=== PATIENT | male | born 1985 | race Caucasian/White ===

== ENCOUNTER 2017-02-24 22:28 | Emergency (ER) | payer MEDICARE, MEDICAID ==
[~2017-02-24] VITALS: Ht 177.8 cm; Wt 95.3 kg
[~2017-02-24 22:28] MED LIST: AMOXICILLIN 50500 MG PO; ANTIVERT12.5 MG PO; AUGMENTIN 875-1 EACH PO; AUGMENTIN1 TA2 PO; AURALGAN O10 ML/BOTT OT; BUSPAR 5MG TAB5 MG PO; CEPHALEXIN500 MG PO; CIPRO 500MG TA500 MG PO; CLARITIN 24HR10 MG PO; CLINDAMYCIN HC300 MG PO; DOXEPIN HCL100 MG PO; FLUVOXAMINE MA100 MG PO; HYDROCODONE1 TABLET PO; KLONOPIN 0.5MG0.5 MG PO; LEVOTHYROXINE0.05 MG NG; LIPITOR10 MG PO; LORTAB 5/500 501 TAB PO; LYRICA 100 MG100 MG; NAPROSYN500 M1 PO; Oxycodone5 MG NG; PREDNISONE 20MG20 MG PO; REQUIP0.25 MG PO; REQUIP1 MG PO; SEROQUEL XR400 MG PO; SEROQUEL50 MG PO; SULFAMETHOXAZOL1 TA6 PO; SYNTHROID 0.00.05 MG PO; TESSALON PERLE100 MG PO
--- OUTSIDE RECORDS SUMMARY | 2017-02-24 22:39 | External Medical Summary Rpt ---
Author Author , Organization [employer] Address Unknown Phone Unavailable Care Team Providers Care Document Restorer Name Role Phone MILLY SRINIVASAN Unavailable Unavailable KRISTY MILLY WAGNER, MILLY Unavailable Unavailable KRISTY [employer] [facility] Unavailable Unavailable ACTION, [facility] SVETLANA, MACEY H, Unavailable Unavailable SVETLANA, MACEY H [facility] [place] Un[facility], Unavailable Unavailable [facility] MARYAN GERHARD, Unavailable Unavailable MARYAN GERHARD [facility], Unavailable Unavailable [facility], [facility] Unavailable Unavailable [facility], [facility] Unavailable Unavailable [facility] Unavailable Unavailable [facility], [facility] Unavailable Unavailable TRANSPORTATION SER, [facility] NILA JANNIE, NILA Unavailable Unavailable JANNIE NILA JANNIE, NILA Unavailable Unavailable JANNIE [facility] Unavailable Unavailable HOSPITA, [facility] Unavailable [facility]available [facility], [facility] HABASH, KEFAH, Unavailable Unavailable [facility]ABASH, KEFAH [facility] Unavailable Unavailable INC, [facility] HUHN, KENDY, HUHN, Unavailable Unavailable KENDY SCOTT TRA, SCOTT TRA Unavailable Unavailable LLAMAS-VINCE OMERO, Unavailable Unavailable [facility]AM[facility]VINCE OMERO RICHARD III ZBIGNIEW, Unavailable Unavailable RICHARD III ZBIGNIEW [facility] Un[facility] Unavailable [facility], [facility], Unavailable Unavailable [facility], Unavailable Unavailable [facility], [facility]available Unavailable [facility] Unavailable Unavailable ACTION, [facility] Unavailable Unavailable SERVICES, [facility] Unavailable Unavailable SERVICES, [facility] ALEX PERALES, Unavailable Unavailable ALEX PERALES HENRY, Unavailable Unavailable JAYDAROMELIA VAZQUEZ [facility], [facility]YN[facility] PAD Unavailable Unavailable [facility], [facility] Unavailable Unavailable ERASMO ALONSO, ERASMO ALONSO Unavailable Unavailable ERASMO ALONSO, ERASMO ALONSO Unavailable Unavailable [id number], Unavailable Unavailable [id number] SOKAN BAB, SOKAN BAB Unavailable Unavailable [facility] Unavailable Unavailable [facility], [facility] Unavailable Unavailable [facility], [facility] ARTI III CASSY, Unavailable Unavailable ARTI III CASSY NEELY, Unavailable Unavailable AMANUEL Neely Unavailable Unavailable III Amanuel BROTHERS III MD TANIA BRYANT, TANIA Unavailable Unavailable MANNY BETHANY MAT, BETHANY MAT Unavailable Unavailable Purpose Continuity of Care Document - 10-24-2007 through 2016 Problems Code Diagnosis DOS Provider Status M542 CERVICALGIA 05-30-2016 [facility] M545 LOW BACK 05-30-2016 [facility] M546 PAIN IN 05-30-2016 [facility]AC[facility] SPINE INC I10 ESSENTIAL 03-31-2016 [facility] HYPERTENSIO INC N K219 GASTRO-ESOP 03-31-2016 [facility] REFLUX [facility] DISEASE INC WITHOUT ESOPHAGITIS K5900 CONSTIPATIO 03-31-2016 [place] N [facility] UNSPECIFIED IMAGING ASS K6289 OTHER 03-31-2016 [facility] SPECIFIED [facility] DISEASES OF INC ANUS AND RECTUM N508 OTHER 03-31-2016 [place] SPECIFIED MEDICAL DISORDERS IMAGING ASS OF MALE GENITAL ORGANS R109 UNSPECIFIED 03-31-2016 [place] ABDOMINAL MEDICAL PAIN IMAGING ASS G74726 CELLULITIS 12-04-2015 [facility] RIGHT [facility] FINGER INC T148 OTHER 12-04-2015 [facility] INJURY OF [facility] UNSPECIFIED INC BODY REGION Z23 ENCOUNTER 12-04-2015 [facility] FOR [facility] IMMUNIZATIO INC N J209 ACUTE 08-09-2015 [facility]ONCH[facility]IS [facility] UNSPECIFIED INC R918 OTHER 08-09-2015 [place] NONSPECIFIC MEDICAL ABNORMAL IMAGING ASS FINDING OF LUNG FIELD 13783 01-06-2015 [facility] ION SER 7862 COUGH 08-19-2014 [facility] 7295 PAIN IN 06-07-2014 [place] SOFT MEDICAL TISSUES OF IMAGING ASS LIMB 50611 SPRAIN AND 06-07-2014 NILA JANNIE STRAIN OF UNSPECIFIED SITE OF FOOT 5537 INJURY 06-07-2014 [place] OTHER&UNSPE MEDICAL CIFIED KNEE IMAGING ASS LEG ANKLE&FOOT E8849 OTHER 06-07-2014 NILA JANNIE ACCIDENTAL FALL FROM ONE LEVEL TO ANOTHER 75102 SCOLIOSIS , 03-09-2014 [facility] [place] [facility] 7245 UNSPECIFIED 02-07-2014 ER[facility] ALONSO BACKACHE 08382 CHEST PAIN 02-07-2014 [place] UNSPECIFIED MEDICAL IMAGING ASS 382.9 382.9 2013 [place] [facility]ITIS [facility] MEDIA NOS Hospital 3829 UNSPECIFIED 2013 [facility] 401.9 401.9 2013 [place] HYPERTENSIO [facility] N NOS Hospital 4019 UNSPECIFIED 2013 [place] ESSENTIAL [facility] HYPERTENSIO INC N 48118 PAIN IN 04-18-2013 [facility] [place] [facility], RADIOLOGY FOREARM 354.0 354.0 10-27-2012 [facility] SYNDROME 719.43 719.43 10-27-2012 [facility] M 77964 SPRAIN AND 10-27-2012 [facility] STRAIN OF UNSPECIFIED SITE OF WRIST 7242 LUMBAGO 05-22-2012 [facility] [place] [facility] 3534 LUMBOSACRAL 05-02-2012 [facility] [place] ROOT [facility]THOP[facility]EDIC LESIONS NEC S PLC 7820 DISTURBANCE 05-02-2012 [facility] [place] OF SKIN ORTHOPAEDIC SENSATION S PLC 3540 CARPAL 02-15-2012 [facility] SYNDROME MEDICAL EQUIPME 3688 OTHER 08-29-2011 [place] SPECIFIED MEDICAL VISUAL IMAGING ASS DISTURBANCE S 00404 ONYCHIA AND 08-29-2011 [facility] EMERGENCY OF FINGER SERVICES 7231 CERVICALGIA 08-29-2011 [facility] 7840 HEADACHE 08-29-2011 [facility] 55217 HEAD 08-29-2011 [facility] INJURY, EMERGENCY UNSPECIFIED SERVICES 2449 UNSPECIFIED 08-15-2011 MARCOSLINDA KRISTY HYPOTHYROID ISM 22316 OTH 08-15-2011 MARCOSLINDA KRISTY EXTRAPYRAMI YNES DZ&ABNORM MOVMNT DISORDER 36789 VARIANTS 08-15-2011 MARCOSLINDA KRISTY MIGRAINE NEC INTRACT MIGRAINE W/[place] [address] ESOPHAGEAL 08-15-2011 MARCOSLINDA KRISTY REFLUX 2724 OTHER AND 05-08-2011 [place] UNSPECIFIED [facility] INC HYPERLIPIDE DEVAN 5718 OTHER 03-19-2011 [facility] CHRONIC NONALCOHOLI C LIVER DISEASE 7948 NONSPECIFIC 03-19-2011 [facility] ABNORMAL RESULTS LIVR FUNCTION STUDY 7030 INGROWING 12-11-2010 [facility] 7905 OTHER 11-28-2010 [place] NONSPECIFIC COMMUNITY ABNORMAL HOSPITA SERUM ENZYME LEVELS 39730 PAIN IN 08-10-2010 [place] [facility], MEDICAL LOWER LEG IMAGING ASS 8449 SPRAIN&STRA 08-10-2010 [facility] IN OF EMERGENCY UNSPECIFIED SERVICES SITE OF KNEE&LEG 64490 OTHER 06-06-2010 [facility] ABNORMAL GLUCOSE 7906 OTHER 06-06-2010 [place] ABNORMAL COMMUNITY BLOOD HOSPITA CHEMISTRY V180 FAMILY 06-02-2010 [facility] HISTORY OF DIABETES MELLITUS V700 ROUTINE 06-02-2010 [facility] MEDICAL EXAM@HEALTH CARE FACL 38172 ONYCHIA AND 10-27-2009 [facility]GENCY OF TOE SERVICES ASSOCIATES 0340 STREPTOCOCC 08-24-2009 [facility] SORE [facility] THROAT SERVICES ASSOCIATES 3670 HYPERMETROP 07-22-2009 [facility] 77619 REGULAR 07-22-2009 [facility] 8483 SPRAIN AND 02-22-2009 [place] STRAIN OF [facility] 8488 OTHER 02-22-2009 [facility] SPECIFIED EMERGENCY SITES OF SERVICES SPRAINS AND ASSOCIATES STRAINS E9278 OTH 02-22-2009 [facility] OVEREXERT&S EMERGENCY TRENUOUS&RE SERVICES PETITIVE ASSOCIATES MVMNTS/LOAD S 24744 OTHER 09-14-2008 [facility] CAVITY AND SINUSES V5869 LONG-TERM 07-01-2008 [place] (CURRENT) [facility] USE OF HOSPITAL OTHER MEDICATIONS 4660 ACUTE 10-24-2007 [facility] 5110 PLEURISY 10-24-2007 [facility] WITHOUT [facility] MENTION INC EFFUS/CURRE NT TB Allergies, Adverse Reactions, Alerts Type Drug Allergy Adverse Reaction to Substance Substance Reaction Severity Codeine Unknown Unknown Acetaminophen Unknown Unknown Medications Na ND Rx Da Fi Fi Am Da Di Ph RX Ph St me C No te ll ll ou ys ag ar # ys at rm s nt no ma ic us Or Da si cy ia de te s n re d QU 49 02 03 60 30 00 RI Ac ET 88 -1 -1 .0 00 TE ti IA 40 6- 7- 00 01 ve PI 80 20 20 17 AI NE 80 17 17 23 D 2 05 PH ER AR MA 30 CY 0 MG #3 93 TA 8 BL ET 50 12 01 00 24 12 CV 19 PO Ac 38 -2 -[address] ti 30 3- 1- 00 PH 21 ON ve 87 20 20 0 AR 21 08 09 MA HE 6 CY NR Y 23 32 CL 00 03 06 01 60 30 RI 73 No Ac ON 09 -3 -1 .0 TE 03 t ti AZ 30 1- 2- 00 37 Av ve EP 83 20 20 AI ai AM 20 08 08 D la 1 PH bl 0. AR e 5 M MG #3 93 TA 8 BL ET CL 00 03 05 00 60 30 RI 73 No Ac ON -3 -0 .0 TE 03 t ti AZ 30 1- 8- 00 37 Av ve EP 83 20 20 AI ai AM 20 08 08 D la 1 PH bl 0. AR e 5 M MG #3 93 TA 8 BL ET CL 00 01 04 01 60 30 RI 71 No Ac ON -2 -1 .0 TE 64 t ti AZ 30 2- 7- 00 63 Av ve EP 83 20 20 AI ai AM 20 08 08 D la 1 PH bl 0. AR e 5 M MG #3 93 TA 8 BL ET CL 00 01 03 00 60 30 RI 71 No Ac ON 2 -2 .0 TE 64 t ti AZ 30 2- 6- 00 63 Av ve EP 83 20 20 AI ai AM 20 08 08 D la 1 PH bl 0. AR e 5 M MG #3 93 TA 8 BL ET CL 00 11 03 02 60 30 RI 70 No Ac ON -0 -2 .0 TE 46 t ti AZ 30 5- 4- 00 86 Av ve EP 83 20 20 AI ai AM 20 07 08 D la 1 PH bl 0. AR e 5 M MG #3 93 TA 8 BL ET Vital Signs 2013 16:09 Name Value Interpretat Reference Comment ion Range Body 98.3 [degF] Temperature BP 78 mm[Hg] Diastolic BP Systolic 120 mm[Hg] Heart 93 /min Rate/Pulse O2% 98 % Respiratory 18 /min Rate 2013 16:08 Name Value Interpretat Reference Comment ion Range Body 98.3 [degF] Temperature BP 78 mm[Hg] Diastolic BP Systolic 120 mm[Hg] Heart 93 /min Rate/Pulse O2% 98 % Respiratory 18 /min Rate 10-27-2012 17:42 Name Value Interpretat Reference Comment ion Range Body 98.1 [degF] Temperature BP 77 mm[Hg] Diastolic BP Systolic 119 mm[Hg] Heart 101 /min Rate/Pulse O2% 96 % Respiratory 17 /min Rate Procedures Procedure DOS Code Location Performer Comment RADEX 43532 [facility] SPINE 6 [facility] CERVICAL INC INC [address] [place] [address] [facility] ABDOMEN & 6 [facility] PELVIS INC INC W/CONTRAS T MATERIAL RADEX 06779 [facility] ABDOMEN 6 MEDICAL GERHARD COMPL IMAGING W/DCBTS&/ ASS ERC VIEWS IM ADM 33539 [facility] PRQ ID 6 [facility] SUBQ/IM INC INC NJXS 1 VACCINE RADIOLOGI 20240 [facility] C EXAM 5 [facility]OSP CHEST 2 INC INC VIEWS FRONTAL&L ATERAL NONEMERG A0120 [facility] FEDERATED TRNSPRT: 5 [facility] TRANSPORT [facility] AREA/OTH SYS NONEMERG A0120 FEDERATED FEDERATED TRNSPRT: 4 TRANS [facility] TRANSPORT [facility] SER KIET AREA/OTH SYS RADIOLOGI 52798 [place] MARYAN C EXAM 4 MEDICAL GERHARD CHEST 2 IMAGING VIEWS ASS FRONTAL&L ATERAL NONEMERG A0120 FEDERATED FEDERATED TRNSPRT: 4 TRANS [facility] TRANSPORT [facility] SER KIET AREA/OTH SYS NONEMERG A0120 FEDERATED FEDERATED TRNSPRT: 4 TRANS [facility] TRANSPORT [facility]G [facility] SER KIET AREA/OTH SYS NONEMERG A0120 FEDERATED FEDERATED TRNSPRT: 4 TRANS [facility] TRANSPORT [facility] SER KIET AREA/OTH SYS NONEMERG A0120 FEDERATED FEDERATED TRNSPRT: 4 TRANS [facility] TRANSPORT SERVBLUEG [facility] SER KIET AREA/OTH SYS RADEX 51641 ALBERTO MARYAN FOOT 4 MEDICAL GERHARD COMPLETE IMAGING MINIMUM 3 ASS VIEWS RADEX 35365 [facility] [place] BETHANY MAT SPINE 4 RADIOLOGY THORACOLM BR STANDING SCOLIOSIS RADIOLOGI 85616 [place] MARYAN C EXAM 4 MEDICAL GERHARD CHEST 2 IMAGING VIEWS ASS FRONTAL&L ATERAL NONEMERG A0120 BLUE BLUE TRNSPRT: 3 [facility] IMNEXTBUS [facility] MTN ACTION ACTION AREA/OTH SYS NONEMERG A0120 BLUE BLUE TRNSPRT: 3 [facility] ACTION ACTION AREA/OTH SYS NONEMERG A0120 BLUE BLUE TRNSPRT: 3 [facility] MTN ACTION ACTION AREA/OTH SYS RADEX 86653 [facility] [place] RICHARD WRIST 3 RADIOLOGY III ZBIGNIEW COMPLETE MINIMUM 3 VIEWS NONEMERG A0120 BLUE BLUE TRNSPRT: [address] [facility] IMNEXTRAREFORM [facility] MTN ACTION ACTION AREA/OTH SYS NONEMERG A0120 LKLP LKLP TRNSPRT: 3 [facility] MINI-BUS ACTION ACTION MTN AREA/OTH SYS WRIST L3908 [facility] HAND 3 ORTHOSIS EXT CONTROL COCK-UP PREFAB NONEMERG A0120 LKLP LKLP TRNSPRT: 3 [facility] MINI-BUS ACTION ACTION MTN AREA/OTH SYS NONEMERG A0120 LKLP LKLP TRNSPRT: 3 [facility] MIN[facility]-BUS ACTION ACTION MTN AREA/OTH SYS NONEMERG A0120 LKLP LKLP TRNSPRT: 2 [facility] MINI-BUS ACTION ACTION MTN AREA/OTH SYS NONEMERG A0120 LKLP LKLP TRNSPRT: 2 [facility]-BUS ACTION ACTION MTN AREA/OTH SYS NONEMERG A0120 LKLP LKLP TRNSPRT: 2 [facility] MINI-BUS ACTION ACTION MTN AREA/OTH SYS NONEMERG A0120 LKLP LKLP TRNSPRT: 2 [facility] ACTION ACTION MTN AREA/OTH SYS NONEMERG A0120 LKLP LKLP TRNSPRT: 2 [facility] MINI-BUS ACTION ACTION MTN AREA/OTH SYS NONEMERG A0120 LK LK TRNSPRT: 2 [facility] COMM[facility] ACTION ACTION MTN AREA/OTH SYS NONEMERG A0120 LK LK TRNSPRT: 2 COMMUNITY COMMUNITY [facility] ACTION MTN AREA/OTH SYS NONEMERG A0120 LK LK TRNSPRT: 2 COMM[facility] COMMUNITY [facility] ACTION MTN AREA/OTH SYS NONEMERG A0120 LK LK TRNSPRT: 2 COMMUNITY COMMUNITY [facility] ACTION MTN AREA/OTH SYS NONEMERG A0120 LK LK TRNSPRT: 2 [facility] COMMUNITY [facility] ACTION ACTION MTN AREA/OTH SYS NONEMERG A0120 LK LK TRNSPRT: 2 [facility] COMMUNITY [facility] ACTION ACTION MTN AREA/OTH SYS NONEMERG A0120 LK LK TRNSPRT: 2 [facility] COMMUNITY [facility] ACTION ACTION MTN AREA/OTH SYS NONEMERG A0120 LK LK TRNSPRT: 2 [facility] COMMUNITY [facility] ACTION ACTION MTN AREA/OTH SYS NONEMERG A0120 LK LK TRNSPRT: 2 [facility] COMMUNITY [facility] ACTION ACTION MTN AREA/OTH SYS NONEMERG A0120 LK LK TRNSPRT: 2 [facility] COMMUNITY [facility] ACTION ACTION MTN AREA/OTH SYS NONEMERG A0120 LK LK TRNSPRT: 2 COMMUNITY COMMUNITY [facility] ACTION MTN AREA/OTH SYS NONEMERG A0120 LK LK TRNSPRT: 2 [facility]UN[facility] ACTION ACTION MTN AREA/OTH SYS NONEMERG A0120 LK LK TRNSPRT: 2 COMMUNITY COMMUNITY [facility] ACTION MTN AREA/OTH SYS NONEMERG A0120 LK LK TRNSPRT: 2 COMMUNITY COMMUNITY [facility] ACTION MTN AREA/OTH SYS MRI 41013 [facility] [place] SPINAL 2 [place] MANNY CANAL ORTHOPAED LUMBAR ICS PLC W/O CONTRAST MATERIAL NRV CNDJ 48863 [facility] AMPLT&LAT 2 [place] ENCY EA ORTHOPAED NRV MOTOR ICS PLC W/F-WAVE STD NRV CNDJ 77628 [facility] AMPLITUDE 2 [place] & ORTHOPAED LATENCY ICS PLC EACH NERVE SENSORY H-REFLEX 81632 [facility] AMPLT&LAT 2 [place] ENCY ORTHOPAED GASTRCN/S ICS PLC OLEUS MUSC NEEDLE 24320 [facility] EMG EA 2 [place] EXTREMTY ORTHOPAED W/PARASPI ICS PLC NL AREA COMPLETE RADEX 37785 [facility] [place] SPINE 2 [place] MANNY LUMBOSACR ORTHOPAED AL 2/3 ICS PLC VIEWS NONEMERG A0120 LK LK TRNSPRT: 2 [facility] MINI-BUS ACTION ACTION MTN AREA/OTH SYS NONEMERG A0120 [facility] TRNSPRT[facility] 2 [facility] ACTION ACTION MTN AREA/OTH SYS NONEMERG A0120 [facility] TRNSPRT: 2 [facility] ACTION ACTION MTN AREA/OTH SYS NONEMERG A0120 [facility] TRNSPRT: 2 [facility] ACTION ACTION MTN AREA/OTH SYS NONEMERG A0120 [facility] TRNSPRT[facility] 2 [facility] ACTION ACTION MTN AREA/OTH SYS NONEMERG A0120 [facility] TRNSPRT[facility] 2 [facility] ACTION ACTION MTN AREA/OTH SYS NONEMERG A0120 [facility] TRNSPRT[facility] 2 [facility] ACTION ACTION MTN AREA/OTH SYS NONEMERG A0120 [facility] TRNSPRT[facility] 2 [facility] ACTION ACTION MTN AREA/OTH SYS NONEMERG A0120 [facility] TRNSPRT: 2 [facility] ACTION ACTION MTN AREA/OTH SYS NONEMERG A0120 [facility] TRNSPRT: 2 [facility] ACTION ACTION MTN AREA/OTH SYS NONEMERG A0120 LK LK TRNSPRT: 2 [facility] ACTION ACTION MTN AREA/OTH SYS NONEMERG A0120 LK LK TRNSPRT: 2 [facility] ACTION ACTION MTN AREA/OTH SYS NONEMERG A0120 LK LK TRNSPRT: 2 [facility] ACTION ACTION MTN AREA/OTH SYS WRIST L3908 [facility] S[facility] HAND 2 HOME HOME ORTHOSIS MEDICAL MEDICAL EXT EQUIPME EQUIPME CONTROL COCK-UP PREFAB NONEMERG A0120 LK LK TRNSPRT: 2 [facility] ACTION ACTION MTN AREA/OTH SYS NONEMERG A0120 LK LK TRNSPRT: 1 [facility] ACTION N MTN AREA/OTH SYS RADEX 33660 [facility] SPINE 1 MEDICAL MEDICAL CERVICAL IMAGING IMAGING 4 OR [address] [place] [address] [facility] MAXILLOFA 1 MEDICAL MEDICAL CIAL W/[place] [address] [facility] HEAD/BRAI 1 MEDICAL MEDICAL N W/O IMAGING IMAGING CONTRAST ASS ASS MATERIAL NONEMERG A0120 LK LK TRNSPRT: 1 [facility]-BUS ACTION N MTN AREA/OTH SYS LIPID 98469 [facility] PANEL 1 [facility] INC INC COMPREHEN 28940 [facility] SIVE 1 [facility] METABOLIC INC INC PANEL COLLECTIO 04795 [facility] N VENOUS 1 [facility]OS[facility] [place] [address] [facility] THYROID 1 Research for Good [facility] STIMULATI NG HORMONE TSH COLLECTIO 30429 [facility] PAD N VENOUS 1 BLOOD VENIPUNCT URE LIPID 58317 [facility] PANEL 1 [facility] COMPREHEN 88888 [facility] SIVE 1 [facility] [place] [address] [facility] GAMMAGLOB 1 N N ULIN IGA COMMUNITY COMMUNITY IGD IGG HOSPITA HOSPITA IGM EACH COLLECTIO 15487 [facility] N VENOUS 1 N N BLOOD [facility] VENIPUNCT HOSPITA HOSPITA URE COMPREHEN 21282 [facility] SIVE 1 N N METABOLIC [facility] PANEL HOSPITA HOSPITA ACUTE 86097 [facility] HEPATITIS 1 N N PANEL [facility] [place] [address] [facility] ABDOMINAL 1 N N REAL COMMUNITY COMMUNITY TIME HOSPITA HOSPITA W/IMAGE LIMITED IMMUNOASS 89881 [facility] AY 1 N N ANALYTE COMMUNITY [facility] QUAL/SEMI HOSPITA HOSPITA QUAL MULTIPLE STEP HEPATITIS 90221 [facility] B CORE 1 N N ANTIBODY COMMUNITY [facility] HBCAB HOSPITA HOSPITA TOTAL HEPATITIS 76013 [facility] B SURF 1 N N ANTIBODY COMMUNITY COMMUNITY HBSAB HOSPITA HOSPITA HEPATITIS 55255 [facility] A 1 N N ANTIBODY COMMUNITY [facility] HAAB HOSPITA HOSPITA ANTINUCLE 33573 [facility] AR 1 N N ANTIBODIE COMMUNITY COMMUNITY S BAUTISTA HOSPITA HOSPITA FLUORESCE 21211 [facility] NT 1 N N NONNFCT COMMUNITY [facility] AGT ANTB HOSPITA [place] S[place] [address] [facility] THYROID 1 N N STIMULATI COMMUNITY [facility] NG HOSPITA HOSPITA HORMONE TSH COMPREHEN 96513 [facility] SIVE 1 N N METABOLIC [facility] PANEL HOSPITA HOSPITA COLLECTIO 66594 [facility] N VENOUS 1 N N BLOOD [facility] VENIPUNCT HOSPITA HOSPITA URE LIPID 01442 [facility] PANEL 1 N N COMMUNITY [facility] HOSPITA HOSPITA RADIOLOGI 82319 [facility] C 0 MEM HOS[facility] MEM HOSP EXAMINATI INC INC ON KNEE 3 VIEWS HEPATIC 44735 [facility] FUNCTION 0 N N PANEL [facility] [place] [address] [facility] INSULIN 0 N N TOTAL [facility] HOSPITA HOSPITA COLLECTIO 95902 [facility] N VENOUS 0 N N BLOOD [facility] VENIPUNCT HOSPITA HOSPITA URE COLLECTIO 22915 [facility] PAD LYNCH PAD N VENOUS 0 BLOOD VENIPUNCT URE COMPREHEN 41963 [facility] SIVE 0 [facility] METABOLIC PANEL LIPID 32480 [facility] PANEL 0 [facility] SUSCEPTIB 03815 [facility] LTY STDY 0 N N ANTIMICRB [facility] MICRO/AGA R DILUTJ CUL BACT 61801 [facility] XCPT 0 N N URINE [facility] OL AEROBIC ISOL CUL BACT 88100 [facility] AEROBIC 0 N N [facility] DEFINITIV E EA ISOL CUL BACT 53793 [facility] XCPT 9 N N URINE [facility] [place] [address] [facility] STREPTOCO 9 N N CCUS [facility] DETERMINA 69931 [facility], TION 9 EYE CARE [facility] REFRACTIV CENTER E STATE OPHTH 98221 [facility], MEDICAL 9 EYE CARE [facility] XM&EVAL CENTER COMPRE NEW PT 1/> VST RADEX 76043 [facility] SHOULDER 9 EMERGENCY KENDY 1 VIEW SERVICES ASSOCIATE S RADEX 86196 [facility] SHOULDER [address] HOSPITAL VIEWS BLOOD 69810 [facility] COUNT 9 N N [facility] AUTO&AUTO [facility] DIFRNTL WBC LIPID 90929 [facility] PANEL 9 N N [facility] HEPATIC 85218 [facility] FUNCTION 9 N [place] [facility] [place] [address] [facility] LACTATE 9 N N [facility] COLLECTIO 37910 [facility] N VENOUS 9 N N [facility] [place] [address] [facility] THYROID 9 N N STIMULATI [facility] TSH BASIC 83096 [facility] METABOLIC 9 N N PANEL [facility] TOTAL BASIC 01678 [facility] METABOLIC 8 N N PANEL [facility] [place] [address] [facility] THYROID 8 N N STIMULATI [facility] TSH COLLECTIO 06160 [facility] N VENOUS 8 N N [facility]LO[facility] HEPATIC 06484 [facility] FUNCTION 8 N N PANEL [facility] LIPID 31353 [facility] PANEL 8 N N [facility] BLOOD 72420 [facility] COUNT 8 N N [facility] AUTO&AUTO [facility] DIFRNTL WBC HEMOGLOBI 11161 [facility] N 8 N N [address] [place] [address] [facility] THER 8 [facility] PROPH/DX INC INC [place] THER 12614 [facility] PROPH/DX 8 [facility] NJX IV INC INC PUSH 1ST SBST/DRUG THER 77380 [facility] PROPH/DX 8 [facility] NJX EA INC INC SEQL IV PUSH SBST/DRUG IV NFS 23470 [facility] THER 8 [facility] PROPH/DX INC INC 1ST >1 HR BASIC 35131 [facility] METABOLIC 8 [facility] PANEL INC INC CALCIUM TOTAL BLOOD 23546 [facility] COUNT 8 [facility] COMPLETE INC INC AUTO&AUTO DIFRNTL WBC RADIOLOGI 58959 Juan GOLDEN EXAM 8 MEDICAL ALEX P CHEST 2 IMAGING VIEWS ASSOCIATE FRONTAL&L S ATERAL APPLICATI 93.54 AMANUEL VAZQUEZ OF [facility] SPLINT Encounters Encounter Start End Date Code Location Performer Type Date [facility] 6 6 [facility] 6 6 [facility] VI[facility] HU[facility] 6 6 [facility] VICTOR HUGO - 5 5 [facility] OUTPATIEN [facility] EMERGENCY 49180 NILA DOTSON 4 4 JANNIE JANNIE DEPARTMEN T VISIT MODERATE SEVERITY EMERGENCY 00307 ERASMO ALONSO ERASMO ALONSO 4 4 DEPARTMEN T VISIT MODERATE SEVERITY Emergency GORDO Neely (ER) 4 15:52 4 16:09 [facility] EMERGENCY 16331 [facility] 4 4 [facility] T VISIT LOW/MODER SEVERITY HOSPITAL VICTOR HU[facility] - 4 4 [facility]EN [facility] [facility] EM[facility]ENCY 26701 CORTEZ NEELY 4 4 EMERGENCY III [facility] T VISIT MODERATE SEVERITY Emergency GORDO NEELY (ER) 3 17:24 3 17:43 [facility] EMERGENCY 89657 CORTEZ NEELY 3 3 EMERGENCY III [facility] T VISIT HIGH/URGE NT SEVERITY OFFICE 27366 [facility] [place] 2 2 [place] VISIT [facility]ED 10 [facility] MIN[facility]ES OFFICE 62089 [facility] [place] OUTPATI[place] 2 2 [place] MANNY T NEW 30 ORTHOPAED MINUTES [facility] EMERGENCY 87740 CORTEZ TORO DEPT 1 1 EMERGENCY EMERGENCY VISIT SERVICES SERVICES HIGH SEVERITY& THREAT FUNCJ OFFICE 65214 MILLY ATKINS OUTPATIEN 1 1 KRISTY KRISTY T VISIT 15 MINUTES [facility]OSPITAL VICTOR HUGO - 1 1 [facility] OUTPATIEN [facility] T OFFICE 27785 LYNCH PAD LYNCH PAD OUTPATIEN 1 1 T VISIT 25 MINUTES OFFICE 21776 LYN[facility] PAD LYNCH PAD OUTPATIEN 1 1 T VISIT 15 MINUTES OFFICE 14860 ZA LLAMAS- OUTPATIEN 1 1 VINCE CLARKE T NEW 45 OMERO [facility]ERO MINUTES [facility] - 1 1 N OUTPATIEN [facility]OSP[facility] EMERGENCY 46844 VICTOR HUGO 1 1 [facility] T VISIT LIMITED/M INOR PROB EMERGENCY 23011 CORTEZ LOPEZ 1 1 EMERGENCY DEPARTMEN SERVICES T VISIT MODERATE SEVERITY [facility] - 1 1 [facility] - 1 1 N OUTPATIEN [facility] T HOSPITA OFFICE 41029 LYNCH PAD LYNCH PAD OUTPATIEN 1 1 T VISIT 15 MINUTES EMERGENCY 99051 CORTEZ NEELY 0 0 EMERGENCY III [facility] DEPARTMEN SERVICES T VISIT HIGH/URGE NT SEVERITY [facility] HU[facility] - 0 0 [facility] T EMERGENCY 88901 VICTOR HUGO 0 0 [facility] T VISIT LOW/MODER SEVERITY OFFICE 62556 LYNCH PAD LYNCH PAD OUTPATIEN 0 0 T VISIT 15 MINUTES [facility]OSPITAL [facility] - 0 0 N OUTPATIEN [facility] T HOSPITA [facility]ICE 11838 LYNCH PAD LYNCH PAD OUTPATIEN 0 0 T NEW 30 MINUTES HOSPITAL [facility] - 0 0 N OUTPATIEN [facility] T HOSPITAL EMERGENCY 36942 CORTEZ MOTA, 0 0 EMERGENCY [facility] T VISIT MODERATE ASSOCIATE SEVERITY S EMERGENCY 01354 [facility] 9 9 N [facility] LOW/MODER SEVERITY [facility]OSP[facility] 9 9 N [facility] HOSPITAL EMERGENCY 42723 CORTEZ ADAMESKHARI, 9 9 EMERGENCY MACEY [facility] T VISIT MODERATE ASSOCIATE [facility]VERITY [facility] - 9 9 N [facility] HOSPITAL EMERGENCY 23412 [facility] 9 9 N [facility] VISIT HOSPITAL MODERATE SEVERITY OFFICE 93806 [facility] JAYDA, OUTPATIEN 9 9 [facility] 15 MINUTES OFFICE 38964 [facility] JAYDA, OUTPATIEN 9 9 [facility] 15 MINUTES HOSPITAL [facility] - 9 9 N [facility] HOSPITAL OFFICE 46720 [facility] JAYDA, [facility]IEN 9 9 [facility] 15 MINUTES OFFICE 77325 H[facility]IZ[facility] JAYDA, OUTPATIEN 8 8 [facility] C[facility] 15 MINUTES HOSPITAL [facility] - 8 8 N [facility] HOSPITAL EMERGENCY [address]45 [place] 8 8 MEM HOS[facility] T VISIT MODERATE SEVERITY [facility] 8 8 [facility]
--- OUTSIDE RECORDS SUMMARY | 2017-02-24 22:39 | External Medical Summary Rpt ---
Author Author , Organization [employer] Address Unknown Phone Unavailable Care Team Providers Care Cinema Operator Name Role Phone MILLY SRINIVASAN Unavailable Unavailable KRISTY MILLY WAGNER, MILLY Unavailable Unavailable KRISTY [employer] [facility] Unavailable Unavailable ACTION, [facility] SVETLANA, MACEY H, Unavailable Unavailable [...] [facility] Un[facility] HABASH, KEFAH, Unavailable Unavailable [facility], KEFAH [facility] Unavailable Unavailable [facility], [facility] HUHN, KENDY, HUHN, Unavailable Unavailable KENDY SCOTT TRA, SCOTT TRA Unavailable Unavailable LLAMAS-VINCE OMERO, Unavailable Unavailable LLAMAS-VINCE OMERO RICHARD III ZBIGNIEW, Unavailable Unavailable RICHARD III ZBIGNIEW [facility] Un[facility] Unavailable [facility], [facility], Unavailable Unavailable [facility], Unavailable Unavailable [facility], [facility]available Unavailable [facility] Unavailable Unavailable ACTION, [facility] Unavailable Unavailable SERVICES, [facility] Unavailable Unavailable SERVICES, [facility] ALEX PERALES, Unavailable Unavailable ALEX [...] DISEASE INC WITHOUT ESOPHAGITIS K5900 CONSTIPATIO 03-31-2016 [place] N MEDICAL UNSPECIFIED IMAGING ASS K6289 OTHER 03-31-2016 [facility] DISEASES OF INC ANUS AND RECTUM N508 OTHER 03-31-2016 [place] SPECIFIED MEDICAL DISORDERS IMAGING ASS OF MALE GENITAL ORGANS R109 UNSPECIFIED 03-31-2016 [place] ABDOMINAL MEDICAL PAIN IMAGING ASS [id number] CELLULITIS 12-04-2015 [facility] RIGHT [facility] FINGER INC T148 OTHER 12-04-2015 [facility] INJURY OF [facility] UNSPECIFIED INC BODY REGION Z23 ENCOUNTER 12-04-2015 [facility] FOR [facility] IMMUNIZATIO INC N J209 ACUTE 08-09-2015 [facility] BRONCHITIS [facility] UNSPECIFIED INC R918 OTHER 08-09-2015 [place] NONSPECIFIC MEDICAL ABNORMAL IMAGING ASS FINDING OF LUNG FIELD 47243 01-06-2015 [facility] ION SER 7862 COUGH 08-19-2014 [facility] 7295 PAIN IN 06-07-2014 [place] SOFT MEDICAL TISSUES OF IMAGING ASS LIMB 34472 SPRAIN AND 06-07-2014 NILA JANNIE STRAIN OF UNSPECIFIED SITE OF FOOT 9192 INJURY 06-07-2014 [place] OTHER&UNSPE MEDICAL CIFIED KNEE IMAGING ASS LEG ANKLE&FOOT E8849 OTHER 06-07-2014 NILA JANNIE ACCIDENTAL FALL FROM ONE LEVEL TO ANOTHER 32962 SCOLIOSIS , 03-09-2014 [facility] [place] IDIOPATHIC RADIOLOGY 7245 UNSPECIFIED 02-07-2014 [facility] ALONSO BACKACHE 95557 CHEST PAIN 02-07-2014 [place] UNSPECIFIED MEDICAL IMAGING ASS 382.9 382.9 2013 [place] OTITIS [facility] MEDIA NOS Hospital 3829 UNSPECIFIED 2013 [facility] 401.9 401.9 2013 [place] HYPERTENSIO [facility] N NOS Hospital 4019 UNSPECIFIED 2013 [facility] HYPERTENSIO INC N 82466 PAIN IN 04-18-2013 [facility] [place] [facility], RADIOLOGY FOREARM 354.0 354.0 10-27-2012 [facility] SYNDROME 719.43 719.43 10-27-2012 [facility] M 48989 SPRAIN AND 10-27-2012 [employer] STRAIN OF UNSPECIFIED SITE OF WRIST 7242 LUMBAGO 05-22-2012 [facility] [place] [facility] S PLC 3534 LUMBOSACRAL 05-02-2012 [facility] [place] ROOT ORTHOPAEDIC LESIONS NEC S PLC 7820 DISTURBANCE 05-02-2012 [facility] [place] OF SKIN ORTHOPAEDIC SENSATION S PLC 3540 CARPAL 02-15-2012 [facility] SYNDROME MEDICAL EQUIPME 3688 OTHER 08-29-2011 [place] SPECIFIED MEDICAL VISUAL IMAGING ASS DISTURBANCE S 84917 ONYCHIA AND 08-29-2011 [facility] OF FINGER SERVICES 7231 CERVICALGIA 08-29-2011 [facility] 7840 HEADACHE 08-29-2011 [facility] 37904 HEAD 08-29-2011 [facility] INJURY, EMERGENCY UNSPECIFIED SERVICES 2449 UNSPECIFIED 08-15-2011 MARCOSLINDA KRISTY HYPOTHYROID ISM 50350 OTH 08-15-2011 MARCOSLINDA KRISTY EXTRAPYRAMI YNES DZ&ABNORM MOVMNT DISORDER 40578 VARIANTS 08-15-2011 MARCOSLINDA KRISTY MIGRAINE NEC INTRACT MIGRAINE W/[place] [address] ESOPHAGEAL 08-15-2011 MARCOSLINDA KRISTY REFLUX 2724 OTHER AND 05-08-2011 [facility]NSPECIFIED [facility] INC HYPERLIPIDE DEVAN 5718 OTHER 03-19-2011 [facility] CHRONIC NONALCOHOLI C LIVER DISEASE 7948 NONSPECIFIC 03-19-2011 [facility] ABNORMAL RESULTS LIVR FUNCTION STUDY 7030 INGROWING 12-11-2010 [facility] 7905 OTHER 11-28-2010 [facility] NONSPECIFIC COMMUNITY ABNORMAL HOSPITA SERUM ENZYME LEVELS 77532 PAIN IN 08-10-2010 [place] JOINT, MEDICAL LOWER LEG IMAGING ASS 8449 SPRAIN&STRA 08-10-2010 [facility] IN OF EMERGENCY UNSPECIFIED SERVICES SITE OF KNEE&LEG 66916 OTHER 06-06-2010 [facility] ABNORMAL GLUCOSE 7906 OTHER 06-06-2010 [facility] ABNORMAL COMMUNITY BLOOD HOSPITA CHEMISTRY V180 FAMILY 06-02-2010 [facility] HISTORY OF DIABETES MELLITUS V700 ROUTINE 06-02-2010 [facility] MEDICAL EXAM@HEALTH CARE FACL 82745 ONYCHIA AND 10-27-2009 [facility] PARONYCHIA EMERGENCY OF TOE SERVICES ASSOCIATES 0340 STREPTOCOCC 08-24-2009 [facility] AL SORE EMERGENCY THROAT SERVICES ASSOCIATES 3670 HYPERMETROP 07-22-2009 [facility] 86453 REGULAR 07-22-2009 [facility] 8483 SPRAIN AND 02-22-2009 [facility] STRAIN OF [facility] 8488 OTHER 02-22-2009 [facility] SPECIFIED EMERGENCY SITES OF SERVICES SPRAINS AND ASSOCIATES STRAINS E9278 OTH 02-22-2009 [facility] OVEREXERT&S EMERGENCY TRENUOUS&RE SERVICES PETITIVE ASSOCIATES MVMNTS/LOAD S 78889 OTHER 09-14-2008 [facility] NASAL CENTER CAVITY AND SINUSES V5869 LONG-TERM 07-01-2008 [facility] (CURRENT) [facility] USE OF HOSPITAL OTHER MEDICATIONS 4660 ACUTE [...] Procedure DOS Code Location Performer Comment RADEX 46365 [facility] SPINE 6 [facility] CERVICAL INC INC [address] [place] [address] [place] [address] [facility] ABDOMEN & 6 [facility] PELVIS INC INC W/CONTRAS T MATERIAL RADEX 73607 [facility] MARYAN ABDOMEN 6 MEDICAL GERHARD COMPL IMAGING W/DCBTS&/ ASS ERC VIEWS IM ADM 74288 [facility] PRQ ID 6 [facility] SUBQ/IM INC INC NJXS 1 VACCINE RADIOLOGI 99801 [facility] C EXAM 5 [facility] CHEST 2 INC INC VIEWS FRONTAL&L ATERAL NONEMERG A0120 FEDERATED FEDERATED TRNSPRT: 5 [facility] TRANSPORT [facility] SER AREA/OTH SYS NONEMERG A0120 FEDERATED FEDERATED TRNSPRT: 4 [facility]ANS [facility] SER KIET AREA/OTH SYS RADIOLOGI 27123 [place] MARYAN C EXAM 4 MEDICAL GERHARD CHEST 2 IMAGING VIEWS ASS FRONTAL&L ATERAL NONEMERG A0120 FEDERATED FEDERATED TRNSPRT: 4 [facility]ANS [facility] SER KIET AREA/OTH SYS NONEMERG A0120 FEDERATED FEDERATED TRNSPRT: 4 [facility] SER KIET AREA/OTH SYS NONEMERG A0120 FEDERATED FEDERATED TRNSPRT: 4 [facility] SER KIET AREA/OTH SYS NONEMERG A0120 FEDERATED FEDERATED TRNSPRT: 4 [facility] SER KIET AREA/OTH SYS RADEX 47340 ALBERTO MARYAN FOOT 4 MEDICAL GERHARD COMPLETE IMAGING MINIMUM 3 ASS VIEWS RADEX 32734 [facility] [place] BETH[place] MAT SPINE 4 RADIOLOGY THORACOLM BR STANDING SCOLIOSIS RADIOLOGI 76011 [place] MARYAN C EXAM 4 MEDICAL GERHARD CHEST 2 IMAGING VIEWS ASS FRONTAL&L ATERAL NONEMERG A0120 BLUE BLUE TRNSPRT: 3 [facility] Softfront[facility] MTN ACTION ACTION AREA/OTH SYS NONEMERG A0120 BLUE BLUE TRNSPRT: 3 [facility] MTN ACTION ACTION AREA/OTH SYS NONEMERG A0120 BLUE BLUE TRNSPRT: 3 [facility] MTN ACTION ACTION AREA/OTH SYS RADEX 55800 [facility] [place] RICHARD WRIST 3 RADIOLOGY III ZBIGNIEW COMPLETE MINIMUM 3 VIEWS NONEMERG A0120 BLUE BLUE TRNSPRT: 3 [facility] SoftfronteDossea [facility] MTN ACTION ACTION AREA/OTH SYS NONEMERG A0120 LKLP LKLP TRNSPRT: 3 [facility] ACTION ACTION MTN AREA/OTH SYS WRIST L3908 [facility] HAND 3 ORTHOSIS EXT CONTROL COCK-UP PREFAB NONEMERG A0120 LKLP LKLP TRNSPRT: 3 [facility] ACTION ACTION MTN AREA/OTH SYS NONEMERG A0120 LKLP LKLP TRNSPRT: 3 [facility] ACTION ACTION MTN AREA/OTH SYS NONEMERG A0120 LKLP LKLP TRNSPRT: 2 [facility] ACTION ACTION MTN AREA/OTH SYS NONEMERG A0120 LKLP LKLP TRNSPRT: 2 [facility] ACTION ACTION MTN AREA/OTH SYS NONEMERG A0120 LKLP LKLP TRNSPRT: 2 [facility] ACTION ACTION MTN AREA/OTH SYS NONEMERG A0120 LKLP LKLP TRNSPRT: 2 [facility] ACTION ACTION MTN AREA/OTH SYS NONEMERG A0120 LKLP LKLP TRNSPRT: 2 [facility] ACTION ACTION MTN AREA/OTH SYS NONEMERG [...] SYS NONEMERG A0120 LK LK TRNSPRT: 2 [facility] ACTION ACTION MTN AREA/OTH SYS NONEMERG A0120 LK LK TRNSPRT: 2 [facility] ACTION ACTION MTN AREA/OTH SYS NONEMERG A0120 LK LK TRNSPRT: 2 [facility] ACTION ACTION MTN AREA/OTH SYS NONEMERG A0120 LK LK TRNSPRT: 2 [facility] ACTION ACTION MTN AREA/OTH SYS NONEMERG A0120 LK LK TRNSPRT: 2 [facility] ACTION ACTION MTN AREA/OTH SYS NONEMERG A0120 LK LK TRNSPRT: 2 [facility] ACTION ACTION MTN AREA/OTH SYS NONEMERG A0120 LK LK TRNSPRT: 2 COMM[facility]ITY COMMUNITY [facility] ACTION ACTION MTN AREA/OTH SYS NONEMERG A0120 LK LK TRNSPRT: 2 [facility] ACTION ACTION MTN AREA/OTH SYS NONEMERG A0120 LK LK TRNSPRT: 2 COMMUNITY COMMUNITY [facility] ACTION ACTION MTN AREA/OTH SYS NONEMERG A0120 LK LK TRNSPRT: 2 COMMUNITY COMMUNITY [facility] ACTION ACTION MTN AREA/OTH SYS MRI 89971 [facility] [place] SPINAL 2 [place] MAN[place] CANAL ORTHOPAED LUMBAR ICS PLC W/O CONTRAST MATERIAL NRV CNDJ 27358 [facility] TRA AMPLT&LAT 2 [place] ENCY EA ORTHOPAED NRV MOTOR [facility]CS PLC W/F-WAVE STD NRV CNDJ 70306 [facility] AMPLITUDE 2 [place] & ORTHOPAED LATENCY ICS PLC EACH NERVE SENSORY H-REFLEX 36048 [facility] AMPLT&LAT 2 [place] ENCY ORTHOPAED GASTRCN/S ICS PLC OLEUS MUSC NEEDLE 07298 [facility] EMG EA 2 [place] EXTREMTY ORTHOPAED W/PARASPI ICS PLC NL AREA COMPLETE RADEX 07705 [facility] [place] SPINE 2 [place] LUMBOSACR ORTHOPAED AL 2/3 ICS PLC VIEWS NONEMERG A0120 LK LK TRNSPRT: 2 [facility] ACTION ACTION MTN AREA/OTH SYS NONEMERG A0120 [facility] TRNSPRT: 2 [facility] ACTION ACTION MTN AREA/OTH SYS NONEMERG A0120 [facility] TRNSPRT: 2 [facility] ACTION ACTION MTN AREA/OTH SYS NONEMERG A0120 [facility] TRNSPRT: 2 [facility] ACTION ACTION MTN AREA/OTH SYS NONEMERG A0120 [facility] TRNSPRT: 2 [facility] ACTION ACTION MTN AREA/OTH SYS NONEMERG A0120 [facility] TRNSPRT: 2 [facility] ACTION ACTION MTN AREA/OTH SYS NONEMERG A0120 [facility] TRNSPRT[facility] 2 [facility] ACTION ACTION MTN AREA/OTH SYS NONEMERG A0120 [facility] TRNSPRT: 2 [facility] ACTION ACTION MTN AREA/OTH SYS NONEMERG A0120 [facility] TRNSPRT: 2 [facility] ACTION ACTION MTN AREA/OTH SYS NONEMERG A0120 [facility] TRNSPRT: 2 [facility] ACTION ACTION MTN AREA/OTH SYS NONEMERG A0120 LK LK TRNSPRT: 2 [facility] ACTION ACTION MTN AREA/OTH SYS NONEMERG A0120 LK LK TRNSPRT: 2 [facility] ACTION ACTION MTN AREA/OTH SYS NONEMERG A0120 LK LK TRNSPRT: 2 [facility] ACTION ACTION MTN AREA/OTH SYS WRIST L3908 [facility] SUE HAND 2 HOME HOME ORTHOSIS MEDICAL MEDICAL EXT EQUIPME EQUIPME CONTROL COCK-UP PREFAB NONEMERG A0120 LK LK TRNSPRT: 2 [facility] ACTION ACTION MTN AREA/OTH SYS NONEMERG A0120 LK LK TRNSPRT: 1 [facility] ACTION N MTN AREA/OTH SYS RADEX 63169 [facility] SPINE 1 MEDICAL MEDICAL CERVICAL IMAGING IMAGING 4 OR [address] [place] [address] [facility] MAXILLOFA 1 MEDICAL MEDICAL CIAL W/[place] IM[place] [address] [facility] HEAD/BRAI 1 MEDICAL MEDICAL N W/O IMAGING IMAGING CONTRAST ASS ASS MATERIAL NONEMERG A0120 LK LK TRNSPRT: 1 [facility] ACTION N MTN AREA/OTH SYS LIPID 65867 [facility] PANEL 1 [facility] INC INC COMPREHEN 70460 [facility] SIVE 1 [facility] METABOLIC INC INC PANEL COLLECTIO 85455 [facility] N VENOUS 1 [facility] [place] [address] [facility] THYROID 1 ISC8 [facility] STIMULATI NG HORMONE TSH COLLECTIO 96770 [facility] L[facility] PAD N VENOUS 1 BLOOD VENIPUNCT URE LIPID 59103 [facility] PANEL 1 [facility] COMPREHEN 18917 [facility] SIVE 1 [facility] [place] [address] [facility] GAMMAGLOB 1 N N ULIN IGA COMMUNITY COMMUNITY IGD IGG HOSPITA HOSPITA IGM EACH COLLECTIO 88226 [facility] N VENOUS 1 N N BLOOD [facility] VENIPUNCT HOSPITA HOSPITA URE COMPREHEN 34401 [facility] SIVE 1 N N METABOLIC [facility] PANEL HOSPITA HOSPITA ACUTE 83165 [facility] HEPATITIS 1 N N PANEL [facility] [address] [facility] ABDOMINAL 1 N N REAL COMMUNITY COMMUNITY TIME HOSPITA HOSPITA W/IMAGE LIMITED IMMUNOASS 52521 [facility] AY 1 N N ANALYTE COMMUNITY [facility] QUAL/SEMI HOSPITA HOSPITA QUAL MULTIPLE STEP HEPATITIS 04127 [facility] B CORE 1 N N ANTIBODY COMMUNITY [facility] HBCAB HOSPITA HOSPITA TOTAL HEPATITIS 08155 [facility] B SURF 1 N N ANTIBODY COMMUNITY COMMUNITY HBSAB HOSPITA HOSPITA HEPATITIS 60181 [facility] A 1 N N ANTIBODY COMMUNITY [facility] HAAB HOSPITA HOSPITA ANTINUCLE 30693 [facility] AR 1 N N ANTIBODIE COMMUNITY COMMUNITY S BAUTISTA HOSPITA HOSPITA FLUORESCE 76628 [facility] NT 1 N N NONNFCT COMMUNITY [facility] AGT ANTB HOSPITA [place] S[place] [address] [facility] THYROID 1 N N STIMULATI COMMUNITY [facility] NG HOSPITA HOSPITA HORMONE TSH COMPREHEN 43903 [facility] SIVE 1 N N METABOLIC [facility] PANEL HOSPITA HOSPITA COLLECTIO 17599 [facility] N VENOUS 1 N N BLOOD [facility] VENIPUNCT HOSPITA HOSPITA URE LIPID 52867 [facility] PANEL 1 N N COMMUNITY [facility] HOSPITA HOSPITA RADIOLOGI 13612 [facility] C 0 [facility]OSP EXAMINATI INC INC ON KNEE 3 VIEWS HEPATIC 03951 [facility] FUNCTION 0 N N PANEL [facility] [place] [address] [facility] INSULIN 0 N N TOTAL [facility] HOSPITA HOSPITA COLLECTIO 54380 [facility] N VENOUS 0 N N BLOOD [facility] VENIPUNCT HOSPITA HOSPITA URE COLLECTIO 21315 [facility] PAD LYNCH PAD N VENOUS 0 BLOOD VENIPUNCT URE COMPREHEN 16012 [facility] SIVE 0 [facility] METABOLIC PANEL LIPID 52533 [facility] PANEL 0 [facility] SUSCEPTIB 24426 [facility] LTY STDY 0 N N ANTIMICRB [facility] MICRO/AGA R DILUTJ CUL BACT 97038 [facility] XCPT 0 N N URINE [facility] OL AEROBIC ISOL CUL BACT 45277 [facility] AEROBIC 0 N N [facility] DEFINITIV E EA ISOL CUL BACT 61004 [facility] XCPT 9 N N URINE [facility] [place] [address] [facility] STREPTOCO 9 N N CCUS [facility] DETERMINA 22914 [facility] TION [facility] REFRACTIV CENTER E STATE OPHTH 46728 [facility], MEDICAL 9 [facility] XM&EVAL CENTER COMPRE NEW PT 1/> VST RADEX 90791 [facility] SHOULDER 9 EMERGENCY KENDY 1 VIEW SERVICES ASSOCIATE S RADEX 19869 [facility] SHOULDER 9 N [address] HOSPITAL VIEWS BLOOD 31602 [facility] COUNT 9 N N [facility] AUTO&AUTO [facility] DIFRNTL WBC LIPID 66210 [facility] PANEL 9 N N [facility] HEPATIC 93172 [facility] FUNCTION 9 N N [facility] [place] [address] [facility] LACTATE 9 N N [facility] COLLECTIO 20509 [facility] N VENOUS 9 N N BLOOD [facility] [place] [address] [facility] THYROID 9 N N STIMULATI [facility] HORMONE TSH BASIC 79736 [facility] METABOLIC 9 N N PANEL [facility] TOTAL BASIC 81234 [facility] METABOLIC 8 N N [place] [address] [facility] THYROID 8 N N STIMULATI [facility] HORMONE TSH COLLECTIO 53962 [facility] N VENOUS 8 N N BLOOD [facility] URE HEPATIC 60030 [facility] FUNCTION 8 N N PANEL [facility] LIPID 10351 [facility] PANEL 8 N N [facility] BLOOD 96675 [facility] COUNT 8 N N [facility] AUTO&AUTO [facility] DIFRNTL WBC HEMOGLOBI 66664 [facility] N 8 N [address] [place] [address] [facility] THER 8 [facility] PROPH/DX INC INC EA HR THER 38670 [facility] PROPH/DX 8 [facility] NJX IV INC INC PUSH 1ST SBST/DRUG THER 37204 [facility] PROPH/DX 8 [facility] NJX EA INC INC SEQL IV PUSH SBST/DRUG IV NFS 67893 [facility] THER 8 [facility] PROPH/DX INC INC 1ST >1 HR BASIC 19262 [facility] METABOLIC 8 [facility] PANEL INC INC CALCIUM TOTAL BLOOD 51967 [facility] COUNT 8 [facility] COMPLETE INC INC AUTO&AUTO DIFRNTL WBC RADIOLOGI 43063 Juan GOLDEN EXAM 8 MEDICAL ALEX P CHEST 2 IMAGING VIEWS ASSOCIATE FRONTAL&L S ATERAL APPLICATI 93.54 AMANUEL VAZQUEZ OF ARTI SPLINT Encounters Encounter Start End Date Code Location Performer Type Date HOSPITAL [facility] - 6 6 [facility] OUTPATIEN [facility] VICTOR HU[facility] - 6 6 [facility]GO - 6 6 [facility] VICTOR HUGO - 5 5 [facility] OUTPATIEN [facility] EMERGENCY 91089 NILA DOTSON 4 4 JANNIE JANNIE DEPARTMEN T VISIT MODERATE SEVERITY EMERGENCY 31268 ERASMO ALONSO ERASMO ALONSO 4 4 DEPARTMEN T VISIT MODERATE SEVERITY Emergency GORDO Neely (ER) 4 15:52 4 16:09 [facility] EMERGENCY [address] VI[facility] HUGO [address] [facility] T VISIT LOW/MODER SEVERITY HOSPITAL VICTOR HUGO - 4 4 [facility] OUTPATIEN [facility] EMERGENCY 39867 [facility] NEELY 4 4 EMERGENCY III [facility] T VISIT MODERATE SEVERITY Emergency GORDO NEELY (ER) 3 17:24 3 17:43 [facility] EMERGENCY 70594 [facility] NEELY 3 3 EMERGENCY III [facility] T VISIT HIGH/URGE NT SEVERITY OFFICE 79036 [facility] OUTPATIEN 2 2 [place] T VISIT ORTHOPAED 10 [facility] MINUTES OFFICE 47963 [facility] [place] OUTPATIEN 2 2 [place] MAN[place] T NEW 30 ORTHOPAED MINUTES ICS PLC EMERGENCY 05507 [facility] TORO DEPT 1 1 EMERGENCY EMERGENCY VISIT SERVICES SERVICES HIGH SEVERITY& THREAT FUNCJ OFFICE 62204 MILLY ATKINS OUTPATIEN 1 1 KRISTY KRISTY T VISIT 15 MINUTES [facility]OSPITAL [facility] - 1 1 [facility] OUT[facility] T OFFICE 21930 LYNCH PAD LYNCH PAD OUTPATIEN 1 1 T VISIT 25 MINUTES OFFICE 54928 LYN[facility] PAD LYNCH PAD OUTPATIEN 1 1 T VISIT 15 MINUTES OFFICE 03316 ZA LLAMAS- OUTPATIEN 1 1 VINCE CLARKE T NEW 45 OMERO OMERO MINUTES HOSPITAL [facility] - 1 1 N OUTPATIEN COMMUNITY T HOSPITA EMERGENCY 67102 VICTOR HUGO 1 1 [facility] DEPARTMEN INC T VISIT LIMITED/M INOR PROB EMERGENCY [id number] CORTEZ LOPEZ 1 1 EMERGENCY DEPARTMEN SERVICES T VISIT MODERATE SEVERITY HOSPITAL [facility]CTOR [facility] - 1 1 [facility] - 1 1 N OUTPATIEN [facility] T HOSPITA OFFICE 75187 LYNCH PAD LYNCH PAD OUTPATIEN 1 1 T VISIT 15 MINUTES EMERGENCY 48215 CORTEZ NEELY 0 0 EMERGENCY III [facility] DEPARTMEN SERVICES T VISIT HIGH/URGE NT SEVERITY HOSPITAL VICTOR HUGO - 0 0 [facility] T EMERGENCY 62081 VICTOR HUGO 0 0 [facility]OW/MODER SEVERITY OFFICE 36938 [facility]YN[facility] PAD LYNCH PAD OUTPATIEN 0 0 T VISIT 15 MINUTES HOSPITAL [facility] - 0 0 N OUTPATIEN [facility] T HOSPITA OFFICE 78137 LYNCH PAD LYNCH PAD OUTPATIEN 0 0 T NEW 30 MINUTES HOSPITAL [facility] - 0 0 N OUTPATIEN [facility] T [facility]PITAL EMERGENCY 80166 CORTEZ MOTA, 0 0 EMERGENCY [facility]ACEY DEPARTMEN SERVICES T VISIT MODERATE ASSOCIATE SEVERITY S EMERGENCY 32021 [facility] 9 [facility] LOW/MODER SEVERITY HOSPITAL [facility] 9 9 N [facility] EMERGENCY 27863 CORTEZ ADAMESKHARI, 9 9 EMERGENCY MACE[facility] T VISIT MODERATE ASSOCIATE [facility]VERITY [facility] - 9 9 N [facility] EMERGENCY 17464 [facility] 9 9 N [facility] VISIT HOSPITAL MODERATE SEVERITY OFFICE 33365 [facility] JAYDA, OUTPATIEN 9 9 [facility] 15 MINUTES OFFICE 59120 [facility] JAY[facility], OUTPATIEN 9 9 [facility] 15 MINUTES HOSPITAL [facility] - 9 9 N [facility] OFFICE 61038 [facility]IEN 9 [facility] MINUTES OFFICE 98307 [facility] JAYDA, OUTPATIEN 8 8 [facility] 15 MINUTES HOSPITAL [facility] - 8 8 N [facility] EMERGENCY 49476 [place] 8 8 [facility] T VISIT MODERATE [facility]VERITY [facility]
--- OUTSIDE RECORDS SUMMARY | 2017-02-24 22:41 | External Medical Summary Rpt ---
Author Author , Organization [employer] Address Unknown Phone Unavailable Care Team Providers Care Solution Engineer Name Role Phone MILLY WAGNER, MILLY Unavailable Unavailable KRISTY MILLY KRISTY, MILLY Unavailable Unavailable KRISTY [facility] Unavailable Unavailable ACTION, [facility] ACTION SVETLANA, MACEY H, Unavailable Unavailable [...] JANNIE NILA JANNIE, NILA Unavailable Unavailable JANNIE [facility] Unavailable Unavailable HOSPITA, [facility] H[facility] Unavailable [facility]available HOSPITAL, [facility] HABASH, KEFAH, Unavailable Unavailable HABASH, KEFAH [facility] Unavailable Unavailable INC, [facility] HUHN, KENDY, HUHN, Unavailable Unavailable KENDY SCOTT TRA, SCOTT TRA Unavailable Unavailable LLAMAS-VINCE OMERO, Unavailable Unavailable LLAMAS-VINCE OMERO RICHARD III [facility], Unavailable Unavailable RICHARD III [facility] Unavailable Unavailable IMAGING ASS, [facility], Unavailable Unavailable [facility], Unavailable Unavailable [facility], [facility]available Unavailable [facility] Unavailable Unavailable ACTION, [facility] Unavailable Unavailable SERVICES[facility] Unavailable Unavailable SERVICES, [facility] ALEX PERALES, Unavailable Unavailable ALEX [...] Unavailable Unavailable EQUIPME, [facility] WEHRMAN III CASSY, Unavailable Unavailable WEHRMAN III CASSY TANIA MANNY, TANIA Unavailable Unavailable MANNY BETHANY MAT, BETHANY [...] DISEASE INC WITHOUT ESOPHAGITIS K5900 CONSTIPATIO 03-31-2016 [facility] N MEDICAL UNSPECIFIED IMAGING ASS K6289 OTHER 03-31-2016 [facility] DISEASES OF INC ANUS AND RECTUM N508 OTHER 03-31-2016 [facility] SPECIFIED MEDICAL DISORDERS IMAGING ASS OF MALE GENITAL ORGANS R109 UNSPECIFIED 03-31-2016 [facility] ABDOMINAL MEDICAL PAIN IMAGING ASS [id number] CELLULITIS 12-04-2015 [facility] OF RIGHT [facility] FINGER INC T148 OTHER 12-04-2015 [facility] INJURY OF [facility] UNSPECIFIED INC BODY REGION Z23 ENCOUNTER 12-04-2015 [facility] FOR [facility] IMMUNIZATIO INC N J209 ACUTE 08-09-2015 [facility] BRONCHITIS [facility] UNSPECIFIED INC R918 OTHER 08-09-2015 [facility] NONSPECIFIC MEDICAL ABNORMAL IMAGING ASS FINDING OF LUNG FIELD 78475 01-06-2015 [facility] ION SER 7862 COUGH 08-19-2014 [facility] 7295 PAIN IN 06-07-2014 [facility] SOFT MEDICAL TISSUES OF IMAGING ASS LIMB 68284 SPRAIN AND 06-07-2014 NILA JANNIE STRAIN OF UNSPECIFIED SITE OF FOOT 9597 INJURY 06-07-2014 [facility] OTHER&UNSPE MEDICAL CIFIED KNEE IMAGING ASS LEG ANKLE&FOOT E8849 OTHER 06-07-2014 NILA JANNIE ACCIDENTAL FALL FROM ONE LEVEL TO ANOTHER 97383 SCOLIOSIS , 03-09-2014 [facility] [place] IDIOPATHIC RADIOLOGY 7245 UNSPECIFIED 02-07-2014 [facility] ALONSO BACKACHE 13535 CHEST PAIN 02-07-2014 [facility] UNSPECIFIED MEDICAL IMAGING ASS 3829 UNSPECIFIED 2013 [facility] 4019 UNSPECIFIED 2013 [facility] ESSENTIAL [facility] HYPERTENSIO INC N 12197 PAIN IN 04-18-2013 [facility] [place] JOINT, RADIOLOGY FOREARM 83587 SPRAIN AND 10-27-2012 [facility] STRAIN OF UNSPECIFIED SITE OF WRIST 7242 LUMBAGO 05-22-2012 [facility] [place] [facility]OPA[facility] S PLC 3534 LUMBOSACRAL 05-02-2012 [facility] [place] ROOT ORTHOPAEDIC LESIONS NEC S PLC 7820 DISTURBANCE 05-02-2012 [facility] [place] OF SKIN ORTHOPAEDIC SENSATION S PLC 3540 CARPAL 02-15-2012 [facility] TUNNEL HOME SYNDROME MEDICAL EQUIPME 3688 OTHER 08-29-2011 [facility] SPECIFIED MEDICAL VISUAL IMAGING ASS DISTURBANCE S 33419 ONYCHIA AND 08-29-2011 [facility] PARONYCHIA EMERGENCY OF FINGER SERVICES 7231 CERVICALGIA 08-29-2011 [facility] 7840 HEADACHE 08-29-2011 [facility] 97986 HEAD 08-29-2011 [facility] INJURY, EMERGENCY UNSPECIFIED SERVICES 2449 UNSPECIFIED 08-15-2011 ARNLINDA KRISTY HYPOTHYROID ISM 53793 OTH 08-15-2011 [facility] KRISTY EXTRAPYRAMI YNES DZ&ABNORM MOVMNT DISORDER 38339 VARIANTS 08-15-2011 [facility] KRISTY MIGRAINE NEC INTRACT MIGRAINE W/[place] 0[address] ESOPHAGEAL 08-15-2011 [facility] KRISTY REFLUX 2724 OTHER AND 05-08-2011 [facility] INC HYPERLIPIDE DEVAN 5718 OTHER 03-19-2011 [facility] CHRONIC NONALCOHOLI C LIVER DISEASE 7948 NONSPECIFIC 03-19-2011 [facility] ABNORMAL RESULTS LIVR FUNCTION STUDY 7030 INGROWING 12-11-2010 [facility] NAIL [facility]ERG[facility]Y SERVICES 7905 OTHER 11-28-2010 [place] NONSPECIFIC COMMUNITY ABNORMAL HOSPITA SERUM ENZYME LEVELS 23480 PAIN IN 08-10-2010 [facility] JOINT, MEDICAL LOWER LEG IMAGING ASS 8449 SPRAIN&STRA 08-10-2010 [facility] IN OF EMERGENCY UNSPECIFIED SERVICES SITE OF KNEE&LEG 92928 OTHER 06-06-2010 [facility] ABNORMAL GLUCOSE 7906 OTHER 06-06-2010 [place] ABNORMAL COMMUNITY BLOOD HOSPITA CHEMISTRY V180 FAMILY 06-02-2010 [facility] HISTORY OF DIABETES MELLITUS V700 ROUTINE 06-02-2010 [facility] MEDICAL EXAM@HEALTH CARE FACL 52318 ONYCHIA AND 10-27-2009 [facility] PARONYCHIA EMERGENCY OF TOE SERVICES ASSOCIATES 0340 STREPTOCOCC 08-24-2009 [facility] AL SORE EMERGENCY THROAT SERVICES ASSOCIATES 3670 HYPERMETROP 07-22-2009 [facility] 62350 REGULAR 07-22-2009 [facility] 8483 SPRAIN AND 02-22-2009 [place] STRAIN OF COMMUNITY [facility] 8488 OTHER 02-22-2009 [facility] SPECIFIED EMERGENCY SITES OF SERVICES SPRAINS AND ASSOCIATES STRAINS E9278 OTH 02-22-2009 [facility] OVEREXERT&S EMERGENCY TRENUOUS&RE SERVICES PETITIVE ASSOCIATES MVMNTS/LOAD S 29160 OTHER 09-14-2008 [facility] CAVITY AND SINUSES V5869 LONG-TERM 07-01-2008 [place] (CURRENT) [facility] USE OF HOSPITAL OTHER MEDICATIONS 4660 ACUTE 10-24-2007 [facility] INC 5110 PLEURISY 10-24-2007 [facility] WITHOUT [facility] MENTION INC EFFUS/CURRE NT TB Medications Na ND Rx Da Fi Fi [...] RI 73 No Ac ON 09 -3 -0 .0 TE 03 t ti AZ 30 1- 8- 00 37 Av ve EP 83 20 20 AI ai AM 20 08 08 D la 1 PH bl 0. AR e 5 M MG #3 93 TA 8 BL ET CL 00 01 04 01 60 30 RI 71 No Ac ON -1 .0 TE 64 t ti AZ 30 2 7- 00 63 Av ve EP 83 20 20 AI ai AM 20 08 08 D la 1 PH bl 0. AR e 5 M MG #3 93 TA 8 BL ET CL 00 01 03 00 60 30 RI 71 No Ac ON -2 .0 TE 64 t ti AZ 30 2 6- 00 63 Av ve EP 83 20 20 AI ai AM 20 08 08 D la 1 PH bl 0. AR e 5 M MG #3 93 TA 8 BL ET CL 00 11 03 02 60 30 RI 70 No Ac ON 0 -2 .0 TE 46 t ti AZ 30 5- 4- 86 Av ve EP 83 20 20 AI ai AM 20 07 08 D la 1 PH bl 0. AR e 5 M MG #3 93 TA 8 BL ET Procedures Procedure DOS Code Location Performer Comment RADEX 87274 [facility] SPINE 6 [facility] CERVICAL INC INC 2 OR 3 VIEWS RADEX 42726 [facility] MARYAN ABDOMEN 6 MEDICAL GERHARD COMPL IMAGING W/DCBTS&/ [place] [address] [facility] MARYAN ABDOMEN & 6 MEDICAL GERHARD PELVIS IMAGING W/CONTRAS ASS T MATERIAL IM ADM 78486 [facility] PRQ ID 6 [facility] SUBQ/IM INC INC NJXS 1 VACCINE RADIOLOGI 47418 [facility] C EXAM 5 [facility] CHEST 2 INC INC VIEWS FRONTAL&L ATERAL NONEMERG A0120 [facility] FEDERATED TRNSPRT: 5 [facility]SPORT TRANSPORT MTN [facility] AREA/OTH SYS NONEMERG A0120 FEDERATED FEDERATED TRNSPRT: 4 TRANS [facility] TRANSPORT SERV[facility]UEG [email or web address] AREA/OTH SYS RADIOLOGI 05782 [facility] MARYAN C EXAM 4 MEDICAL GERHARD CHEST 2 IMAGING VIEWS ASS FRONTAL&L ATERAL NONEMERG A0120 FEDERATED FEDERATED TRNSPRT: 4 TRANS [facility] TRANSPORT SERVBLUEG MTN ATION SER KIET AREA/OTH SYS NONEMERG A0120 FEDERATED FEDERATED TRNSPRT: 4 TRANS [facility] TRANSPORT SERVBLUEG MTN ATION SER KIET AREA/OTH SYS NONEMERG A0120 FEDERATED FEDERATED TRNSPRT: 4 TRANS [facility] TRANSPORT SERVBLUEG MTN ATION SER KIET AREA/OTH SYS NONEMERG A0120 FEDERATED FEDERATED TRNSPRT: 4 TRANS [facility]SPORT [facility]UEG [facility]N [facility] KIET AREA/OTH SYS RADEX 33310 [facility] MARYAN FOOT 4 MEDICAL GERHARD COMPLETE IMAGING MINIMUM 3 ASS VIEWS RADEX 02494 [facility] [place] B[place] MAT SPINE 4 RADIOLOGY THORACOLM BR STANDING SCOLIOSIS RADIOLOGI 40569 [facility] MARYAN C EXAM 4 MEDICAL GERHARD CHEST 2 IMAGING VIEWS ASS FRONTAL&L ATERAL NONEMERG A0120 BLUE BLUE TRNSPRT: 3 [facility] MINI-BUS [facility] MTN ACTION ACTION AREA/OTH SYS NONEMERG A0120 BLUE BLUE TRNSPRT: 3 [facility] MINI-BUS [facility] MTN ACTION ACTION AREA/OTH SYS NONEMERG A0120 BLUE BLUE TRNSPRT: 3 [facility] MINI-BUS [facility] MTN ACTION ACTION AREA/OTH SYS RADEX 77180 [facility] [place] RICHARD WRIST 3 RADIOLOGY III ZBIGNIEW COMPLETE MINIMUM 3 VIEWS NONEMERG A0120 BLUE BLUE TRNSPRT: 3 [facility] MINI-BUS [facility] MTN ACTION ACTION AREA/OTH SYS NONEMERG A0120 LKLP LKLP TRNSPRT: 3 [facility] MINI-BUS ACTION ACTION MTN AREA/OTH SYS WRIST L3908 [facility] HAND 3 ORTHOSIS EXT CONTROL COCK-UP PREFAB NONEMERG A0120 LKLP LKLP TRNSPRT: 3 [facility] MIN[facility]-BUS ACTION ACTION MTN AREA/OTH SYS NONEMERG A0120 LKLP LKLP TRNSPRT: 3 [facility] MINI-BUS ACTION ACTION MTN AREA/OTH SYS NONEMERG A0120 LKLP LKLP TRNSPRT: 2 [facility] ACTION ACTION MTN AREA/OTH SYS NONEMERG A0120 LKLP LKLP TRNSPRT: 2 [facility] COMM[facility] ACTION ACTION MTN AREA/OTH SYS NONEMERG A0120 LK LKLP TRNSPRT: 2 [facility] COMM[facility]ITY [facility] ACTION ACTION MTN AREA/OTH SYS NONEMERG A0120 LK LKLP TRNSPRT: 2 [facility] COMM[facility] ACTION ACTION MTN AREA/OTH SYS NONEMERG A0120 LK LKLP TRNSPRT: 2 [facility] COMM[facility] ACTION ACTION MTN AREA/OTH SYS NONEMERG A0120 LK LKLP TRNSPRT: 2 [facility] COMM[facility]ITY [facility] ACTION ACTION MTN AREA/OTH SYS NONEMERG A0120 LK LKLP TRNSPRT: 2 [facility] COMM[facility] ACTION ACTION MTN AREA/OTH SYS NONEMERG A0120 LK LKLP TRNSPRT: 2 [facility] COMM[facility]ITY [facility] ACTION ACTION MTN AREA/OTH SYS NONEMERG A0120 LK LKLP TRNSPRT: 2 COMM[facility] COMMUNITY [facility] ACTION ACTION MTN AREA/OTH SYS NONEMERG A0120 LK LKLP TRNSPRT: 2 [facility] COMM[facility] ACTION ACTION MTN AREA/OTH SYS NONEMERG A0120 LK LKLP TRNSPRT: 2 [facility] COMM[facility] ACTION ACTION MTN AREA/OTH SYS NONEMERG A0120 LK LKLP TRNSPRT: 2 [facility] COMM[facility]ITY [facility] ACTION ACTION MTN AREA/OTH SYS NONEMERG A0120 LKLP LKLP TRNSPRT: 2 [facility] COMM[facility]ITY [facility] ACTION ACTION MTN AREA/OTH SYS NONEMERG A0120 LK LKLP TRNSPRT: 2 [facility] COMM[facility]ITY [facility] ACTION ACTION MTN AREA/OTH SYS NONEMERG A0120 LK LKLP TRNSPRT: 2 [facility] COMM[facility] ACTION ACTION MTN AREA/OTH SYS NONEMERG A0120 LK LKLP TRNSPRT: 2 [facility]-BUS ACTION ACTION MTN AREA/OTH SYS NONEMERG A0120 LK LK TRNSPRT: 2 [facility] ACTION ACTION MTN AREA/OTH SYS NONEMERG A0120 LK LK TRNSPRT: 2 [facility] ACTION ACTION MTN AREA/OTH SYS NONEMERG A0120 LK LK TRNSPRT: 2 [facility] ACTION ACTION MTN AREA/OTH SYS MRI 84276 [facility] [place] SPINAL 2 [place] MANNY CANAL ORTHOPAED LUMBAR ICS PLC W/O CONTRAST MATERIAL NRV CNDJ 52696 [facility] TRA AMPLT&LAT 2 [place] ENCY EA ORTHOPAED NRV MOTOR ICS PLC W/F-WAVE STD NRV CNDJ 99864 [facility] AMPLITUDE 2 [place] & ORTHOPAED LATENCY ICS PLC EACH NERVE SENSORY H-REFLEX 18951 [facility] TRA AMPLT&LAT 2 [place] ENCY ORTHOPAED GASTRCN/S ICS PLC OLEUS MUSC NEEDLE 99695 [facility] EMG EA 2 [place] EXTREMTY ORTHOPAED W/PARASPI ICS PLC NL AREA COMPLETE RADEX 13849 [facility] [place] SPINE 2 [place] MANNY LUMBOSACR ORTHOPAED AL 2/3 ICS PLC VIEWS NONEMERG A0120 LK LK TRNSPRT: 2 [facility] ACTION ACTION MTN AREA/OTH SYS NONEMERG A0120 LK LK TRNSPRT: 2 [facility] ACTION ACTION MTN AREA/OTH SYS NONEMERG A0120 LK LK TRNSPRT: 2 [facility] ACTION ACTION MTN AREA/OTH SYS NONEMERG A0120 LK LK TRNSPRT: 2 [facility] ACTION ACTION MTN AREA/OTH SYS NONEMERG A0120 LK LK TRNSPRT: 2 [facility] ACTION ACTION MTN AREA/OTH SYS NONEMERG A0120 LK LK TRNSPRT: 2 [facility] ACTION ACTION MTN AREA/OTH SYS NONEMERG A0120 LK LKLP TRNSPRT: 2 [facility] ACTION ACTION MTN AREA/OTH SYS NONEMERG A0120 LKLP LKLP TRNSPRT: 2 [facility] ACTION ACTION MTN AREA/OTH SYS NONEMERG A0120 LK LKLP TRNSPRT: 2 [facility] ACTION ACTION MTN AREA/OTH SYS NONEMERG A0120 LK LKLP TRNSPRT: 2 [facility] ACTION ACTION MTN AREA/OTH SYS NONEMERG A0120 LK LKLP TRNSPRT: 2 [facility] ACTION ACTION MTN AREA/OTH SYS NONEMERG A0120 LK LKLP TRNSPRT: 2 [facility] ACTION ACTION MTN AREA/OTH SYS NONEMERG A0120 LK LKLP TRNSPRT: 2 [facility] ACTION ACTION MTN AREA/OTH SYS WRIST L3908 [facility] HAND 2 HOME HOME ORTHOSIS MEDICAL MEDICAL EXT EQUIPME EQUIPME CONTROL COCK-UP PREFAB NONEMERG A0120 LKLP LKLP TRNSPRT: 2 [facility] ACTION ACTION MTN AREA/OTH SYS NONEMERG A0120 LK LK TRNSPRT: 1 [facility] ACTION N MTN AREA/OTH SYS RADEX 51578 [facility] SPINE 1 MEDICAL MEDICAL CERVICAL IMAGING IMAGING [address] [place] [address] [place] [address] [facility] MAXILLOFA 1 MEDICAL MEDICAL CIAL W/O IMAG[place] [address] [facility] HEAD/BRAI 1 MEDICAL MEDICAL N W/O IMAGING IMAGING CONTRAST ASS ASS MATERIAL NONEMERG A0120 LKLP LKLP TRNSPRT: 1 [facility]I-BUS ACTION N MTN AREA/OTH SYS LIPID 57656 [facility] PANEL 1 [facility] INC INC COMPREHEN 81928 [facility] SIVE 1 [facility] METABOLIC INC INC PANEL COLLECTIO 22405 [facility] N VENOUS 1 [facility] BLOOD INC INC VENIPUNCT URE COLLECTIO 86312 [facility] L[facility] PAD N VENOUS 1 BLOOD VENIPUNCT URE COMPREHEN 71444 [facility] SIVE 1 [facility] [place] [address] [facility] THYROID 1 [facility] STIMULATI NG HORMONE TSH LIPID 19835 [facility] PANEL 1 [facility] IMMUNOASS 69506 [facility] AY 1 N N ANALYTE [facility] QUAL/SEMI HOSPITA HOSPITA QUAL MULTIPLE STEP HEPATITIS 39892 [facility] CORE 1 N N ANTIBODY [facility] HBCAB HOSPITA HOSPITA TOTAL HEPATITIS 88005 [facility] SURF 1 N N ANTIBODY [facility] [place] [address] [facility] [place] [facility] MAT ABDOMINAL 1 RADIOLOGY [place] W/[place] [address] [facility] GAMMAGLOB 1 N N ULIN IGA [facility] IGD IGG HOSPITA HOSPITA IGM EACH HEPATITIS 56641 [facility] A 1 N N ANTIBODY [facility] HAAB HOSPITA HOSPITA COMPREHEN 85719 [facility] SIVE 1 N N METABOLIC [facility] PANEL HOSPITA HOSPITA ACUTE 39886 [facility] HEPATITIS 1 N N PANEL [facility] COMMUNITY HOSPITA HOSPITA COLLECTIO 55153 [facility] N VENOUS 1 N N BLOOD [facility] VENIPUNCT HOSPITA HOSPITA URE ANTINUCLE 67972 [facility] AR 1 N N ANTIBODIE [facility] S BAUTISTA HOSPITA HOSPITA FLUORESCE 26753 [facility] NT 1 N N NONNFCT [facility] AGT ANTB HOSPITA HOSPITA SCREEN EA ANTIBODY COLLECTIO 17144 [facility] N VENOUS 1 N N BLOOD [facility] VENIPUNCT [place] [address] [facility] THYROID 1 N N STIMULATI [facility] NG HOSPITA HOSPITA HORMONE TSH COMPREHEN 97466 [facility] SIVE 1 N N METABOLIC [facility] PANEL HOSPITA HOSPITA LIPID 91038 [facility] PANEL 1 N N [facility] HOSPITA HOSPITA RADIOLOGI 60116 [facility] C 0 MEDICAL GERHARD EXAMINATI IMAGING ON KNEE 3 ASS VIEWS COLLECTIO 96552 [facility] N VENOUS 0 N N BLOOD [facility] VENIPUNCT HOSPITA HOSPITA URE HEPATIC 12035 [facility] FUNCTION 0 N N PANEL [facility] [place] [address] [facility] INSULIN 0 N N TOTAL [facility] HOSPITA HOSPITA COMPREHEN 72856 [facility] SIVE 0 [place] [facility] [employer] INC METABOLIC PANEL LIPID 94649 [facility] PANEL 0 [employer] COLLECTIO 31808 [facility] P[facility] PAD N VENOUS 0 BLOOD VENIPUNCT URE CUL BACT 61186 [facility] XCPT 0 N N URINE [facility] OL AEROBIC ISOL CUL BACT 71826 [facility] AEROBIC 0 N N [facility] DEFINITIV E EA ISOL SUSCEPTIB 09623 [facility] LTY STDY 0 N N ANTIMICRB [facility] MICRO/[place] [address] [facility] STREPTOCO 9 N N [facility] CUL BACT 13380 [facility] XCPT 9 N N URINE [facility] OL AEROBIC ISOL OPHTH 62124 [facility], MEDICAL 9 [facility] COMPRE NEW PT 1/> VST DETERMINA 55360 [facility], TION 9 [facility]ARE [facility] E STATE RADEX 80184 [facility] MINORN, SHOULDER 9 EMERGENCY KENDY 1 VIEW SERVICES ASSOCIATE S RADEX 71356 [facility] SHOULDER 9 N N COMPLETE [address] HOSPITAL VIEWS COLLECTIO 22439 [facility] N VENOUS 9 N N BLOOD [facility] URE BASIC 46507 [facility] METABOLIC 9 N N [facility] [place] [address] [facility] LACTATE 9 N N [facility] [place] [address] [facility] THYROID 9 N N STIMULATI [facility] HORMONE TSH LIPID 83663 [facility] PANEL 9 N N [facility] HEPATIC 52740 [facility] FUNCTION 9 N N PANEL [facility] BLOOD 03899 [facility] COUNT [address] [facility] DIFRNTL WBC HEMOGLOBI 47565 [facility] N 8 N N [address] HEPATIC [address] [facility] FUNCTION 8 N N PANEL [facility] LIPID 50465 [facility] PANEL 8 N N [facility] BLOOD 33566 [facility] COUNT 8 N N COMPLETE [facility] [place] [address] [facility] THYROID 8 N N STIMULATI [facility] HORMONE TSH BASIC 94352 [facility] METABOLIC 8 N N PANEL [facility] TOTAL COLLECTIO 02478 [facility] N VENOUS 8 N N BLOOD [facility] [place] NFS [address] [facility] THER 8 [facility] PROPH/DX INC INC 1ST >1 HR THER 08633 [facility] PROPH/DX 8 [facility] NJX EA INC INC SEQL IV PUSH SBST/DRUG IV NFUS 67411 [facility] THER 8 [facility] PROPH/DX INC INC EA HR THER 14523 [facility] PROPH/DX 8 [facility] NJX IV INC INC PUSH 1ST SBST/DRUG BASIC 48523 VICTOR HUGO GAY METABOLIC 8 [facility] PANEL INC INC CALCIUM TOTAL RADIOLOGI 28566 ALBERTO Juan PERALES EXAM 8 MEDICAL ALEX P CHEST 2 IMAGING VIEWS ASSOCIATE FRONTAL&L S ATERAL BLOOD 05632 VICTOR HUGO GAY COUNT 8 [facility] COMPLETE INC INC AUTO&AUTO DIFRNTL WBC Encounters Encounter Start End Date Code Location Performer Type Date HOSPITAL VI[facility] HU[facility] - 6 6 [facility] VICTOR HUGO [facility] 6 6 [facility] VI[facility] HUGO - 6 6 [facility] VICTOR HUGO - 5 5 [facility] EMERGENCY 66964 NILA DOTSON 4 4 [facility] DEPARTMEN T VISIT MODERATE SEVERITY EMERGENCY 54540 ERASMO ALONSO ERASMO ALONSO 4 4 DEPARTMEN T VISIT MODERATE SEVERITY HOSPITAL VICTOR HUGO - 4 4 [facility] EMERGENCY 64977 VICTOR HUGO 4 4 [facility] T VISIT LOW/MODER SEVERITY EMERGENCY 11252 [facility] 4 4 EMERGENCY III [facility] SERVICES T VISIT MODERATE SEVERITY EMERGENCY 05528 [facility] 3 3 [facility] HIGH/URGE NT SEVERITY OFFICE 82784 [facility] [place] 2 2 [place] VISIT ORTHOPAED 10 [facility] MINUTES OFFICE 09025 [facility] OUTPATIEN 2 2 [place] MANNY T NEW 30 ORTHOPAED MINUTES [facility] EMERGENCY 05349 [facility] TORO DEPT 1 1 EMERGENCY EMERGENCY VISIT SERVICES SERVICES HIGH SEVERITY& THREAT FUNCJ OFFICE 18547 MILLY ATKINS OUTPATIEN 1 1 KRISTY KRISTY T VISIT 15 MINUTES HOSPITAL VICTOR HUGO - 1 1 [facility] T OFF[facility] 93312 LYNCH PAD LYNCH PAD OUTPATIEN 1 1 T VISIT 25 MINUTES OFFICE 16501 LYNCH PAD LYNCH PAD OUTPATIEN 1 1 T VISIT 15 MINUTES HOSPITAL [facility] - 1 1 N OUTPATIEN [facility] T HOSPITA OFFICE 78456 MURIEL- MURIEL- OUTPATIEN 1 1 VINCE VINCE T NEW 45 OMERO OMERO MINUTES HOSPITAL VICTOR HUGO - 1 1 [facility] 98861 VICTOR HUGO 1 1 [facility] T VISIT LIMITED/M INOR PROB EMERGENCY 90655 CORTEZ LOPEZ 1 1 EMERGENCY DEPARTMEN SERVICES T VISIT MODERATE SEVERITY OFFICE 22209 LYNCH PAD LYNCH PAD OUTPATIEN 1 1 T VISIT 15 MINUTES [facility] 0 0 [facility] T VISIT LOW/MODER SEVERITY EMERGENCY 28226 [facility] 0 0 [facility]IGH/URGE NT SEVERITY [facility]OSP[facility] - 0 0 [facility] 22933 LYNCH PAD LYNCH PAD OUTPATIEN 0 0 T VISIT 15 MINUTES OFFICE 24574 LYNCH PAD LYNCH PAD OUTPATIEN 0 0 T NEW 30 MINUTES [facility] 26103 [facility] 0 0 N [facility] T VISIT HOSPITAL MODERATE SEVERITY EMERGENCY 70130 CORTEZ SVETLANA, 9 9 [facility]ER[facility] T VISIT MODERATE ASSOCIATE SEVERITY S HOSPITAL [facility] - [address] [facility] EMERGENC[facility] 58607 [facility] 9 9 N [facility] T VISIT HOSPITAL LOW/MODER SEVERITY [facility]OSPITAL [facility] - [address] [facility] EMERG[facility] 06468 [facility] AMBER, 9 9 [facility] SERVICES T VISIT MODERATE ASSOCIATE SEVERITY S OFFICE 38216 H[facility]IZON JAYDA, OUTPATIEN 9 9 [facility] 15 MINUTES OFFICE 37276 H[facility]IZON JAYDA, OUTPATIEN 9 9 [facility] 15 MINUTES [facility] - [address] [facility]PITAL OFFICE 29143 HORIZON JAYDA, OUTPATIEN 9 9 [facility] 15 MINUTES OFFICE 15619 HORIZON JAYDA, OUTPATIEN 8 8 [facility] 15 MINUTES [facility] - [address] [facility] HOSPITAL EMERGENCY 18278 VICTOR HUGO 8 8 [facility] INC T VISIT MODERATE SEVERITY HOSPITAL [facility] - 8 8 [facility]
--- OUTSIDE RECORDS SUMMARY | 2017-02-24 22:41 | External Medical Summary Rpt ---
Author Author , Organization [employer] Address Unknown Phone Unavailable Care Team Providers Care Paper Production Engineer Name Role Phone MILLY WAGNER, MILLY Unavailable Unavailable KRISTY MILLY KRISTY, MILLY Unavailable Unavailable KRISTY [facility] Unavailable Unavailable ACTION, [facility] SVETLANA, MACEY H, Unavailable Unavailable SVETLANA, MACEY H [facility], Unavailable Unavailable [facility] MARYNA GERHARD, Unavailable Unavailable MARYAN GERHARD [facility], Unavailable Unavailable [facility], [facility] Unavailable Unavailable [facility], [facility] Unavailable Unavailable [facility] Unavailable Unavailable [facility], [facility] Unavailable Unavailable TRANSPORTATION SER, [facility] NILA JANNIE, NILA Unavailable Unavailable JANNIE NILA JANNIE, NILA Unavailable Unavailable JANNIE [facility] Unavailable Unavailable HOSPITA, [facility] Unavailable Unavailable HOSPITAL, [facility] HABASH, KEFAH, Unavailable Unavailable HABASH, KEFAH [facility] Unavailable Unavailable INC, [facility] HUHN, KENDY, HUHN, Unavailable Unavailable KENDY SCOTT TRA, SCOTT TRA Unavailable Unavailable [facility], Unavailable Unavailable [facility] RICHARD III ZBIGNIEW, Unavailable Unavailable RICHARD III [facility] Unavailable Unavailable IMAGING [facility], [facility], Unavailable Unavailable [facility], Unavailable Unavailable [facility], [facility]available Unavailable [facility] Unavailable Unavailable ACTION, [facility] Unavailable Unavailable SERVICES, [facility] Unavailable [facility]available SERVICES, [facility] ALEX PERALES, Unavailable Unavailable ALEX [...] DISEASE INC WITHOUT ESOPHAGITIS K5900 CONSTIPATIO 03-31-2016 [facility] N [facility]ICAL UNSPECIFIED IMAGING ASS K6289 OTHER 03-31-2016 [facility] SPECIFIED [facility] DISEASES OF INC ANUS AND RECTUM N508 OTHER 03-31-2016 [facility] SPECIFIED MEDICAL DISORDERS IMAGING ASS OF MALE GENITAL ORGANS R109 UNSPECIFIED 03-31-2016 [facility] ABDOMINAL MEDICAL PAIN IMAGING ASS [id number] CELLULITIS 12-04-2015 [facility] OF RIGHT [facility] FINGER INC T148 OTHER 12-04-2015 [facility] INJURY OF MEM [facility] UNSPECIFIED INC BODY REGION Z23 ENCOUNTER 12-04-2015 [facility] FOR [facility] IMMUNIZATIO INC N J209 ACUTE 08-09-2015 [facility] BRONCHITIS [facility] UNSPECIFIED INC R918 OTHER 08-09-2015 [facility] NONSPECIFIC MEDICAL ABNORMAL IMAGING ASS FINDING OF LUNG FIELD 46140 01-06-2015 [facility]ATED TRANSPORTAT ION SER 7862 COUGH 08-19-2014 [facility] 7295 PAIN IN 06-07-2014 [facility] SOFT MEDICAL TISSUES OF IMAGING ASS LIMB 63528 SPRAIN AND 06-07-2014 NILA JANNIE STRAIN OF UNSPECIFIED SITE OF FOOT 9597 INJURY 06-07-2014 MA[facility] OTHER&UNSPE MEDICAL CIFIED KNEE IMAGING ASS LEG ANKLE&FOOT E8849 OTHER 06-07-2014 NILA JANNIE ACCIDENTAL FALL FROM ONE LEVEL TO ANOTHER 40792 SCOLIOSIS , 03-09-2014 [facility] 7245 UNSPECIFIED 02-07-2014 ERASMO ALONSO BACKACHE 53664 CHEST PAIN 02-07-2014 [facility] UNSPECIFIED [facility]ICAL IMAGING ASS 3829 UNSPECIFIED 2013 [facility] MEDIA SERVICES 4019 UNSPECIFIED 2013 [facility] ESSENTIAL [facility] HYPERTENSIO INC N 96365 PAIN IN 04-18-2013 [facility] [place] JOINT, RADIOLOGY FOREARM 07795 SPRAIN AND 10-27-2012 [facility] STRAIN OF UNSPECIFIED SITE OF WRIST 7242 LUMBAGO 05-22-2012 [facility] 3534 LUMBOSACRAL 05-02-2012 [facility] [place] ROOT ORTHOP[facility]IC LESIONS NEC S PLC 7820 DISTURBANCE 05-02-2012 [facility] [place] OF SKIN ORTHOPAEDIC SENSATION S PLC 3540 CARPAL 02-15-2012 [facility] TUNNEL HOME SYNDROME MEDICAL EQUIPME 3688 OTHER 08-29-2011 [facility] SPECIFIED MEDICAL VISUAL IMAGING ASS DISTURBANCE S 53970 ONYCHIA AND 08-29-2011 [facility] PARONYCHIA EMERGENCY OF FINGER SERVICES 7231 CERVICALGIA 08-29-2011 [facility] 7840 HEADACHE 08-29-2011 [facility] 76751 HEAD 08-29-2011 [facility] INJURY, EMERGENCY UNSPECIFIED SERVICES 2449 UNSPECIFIED 08-15-2011 ARNLINDA KRISTY HYPOTHYROID ISM 22049 OTH 08-15-2011 ARNOLD KRISTY EXTRAPYRAMI YNES DZ&ABNORM MOVMNT DISORDER 22542 VARIANTS 08-15-2011 ARNOLD KRISTY MIGRAINE NEC INTRACT MIGRAINE W/[place] SM 6[address] ESOPHAGEAL 08-15-2011 ARNOLD KRISTY REFLUX 2724 OTHER AND 05-08-2011 [facility] UNSPECIFIED [facility] INC HYPERLIPIDE DEVAN 5718 OTHER 03-19-2011 [facility] CHRONIC NONALCOHOLI C LIVER DISEASE 7948 NONSPECIFIC 03-19-2011 [facility] ABNORMAL RESULTS LIVR FUNCTION STUDY 7030 INGROWING 12-11-2010 [facility] NAIL [facility]ERG[facility]Y SERVICES 7905 OTHER 11-28-2010 [facility] NONSPECIFIC COMMUNITY ABNORMAL HOSPITA SERUM ENZYME LEVELS 98293 PAIN IN 08-10-2010 [facility] JOINT, MEDICAL LOWER LEG IMAGING ASS 8449 SPRAIN&STRA 08-10-2010 [facility] IN OF EMERGENCY UNSPECIFIED SERVICES SITE OF KNEE&LEG 78815 OTHER 06-06-2010 [facility] ABNORMAL GLUCOSE 7906 OTHER 06-06-2010 [place] [facility] ABNORMAL COMMUNITY BLOOD HOSPITA CHEMISTRY V180 FAMILY 06-02-2010 [facility] HISTORY OF DIABETES MELLITUS V700 ROUTINE 06-02-2010 [facility] MEDICAL EXAM@HEALTH CARE FACL 95290 ONYCHIA AND 10-27-2009 [facility] PARONYCHIA EMERGENCY OF TOE SERVICES ASSOCIATES 0340 STREPTOCOCC 08-24-2009 [facility] AL SORE EMERGENCY THROAT SERVICES ASSOCIATES 3670 HYPERMETROP 07-22-2009 [facility] 97090 REGULAR 07-22-2009 [facility] 8483 SPRAIN AND 02-22-2009 [place] STRAIN OF COMMUNITY [facility] 8488 OTHER 02-22-2009 [facility] SPECIFIED EMERGENCY SITES OF SERVICES SPRAINS AND ASSOCIATES STRAINS E9278 OTH 02-22-2009 [facility] OVEREXERT&S EMERGENCY TRENUOUS&RE SERVICES PETITIVE ASSOCIATES MVMNTS/LOAD S 38079 OTHER 09-14-[address] [facility] CAVITY AND SINUSES V5869 LONG-TERM 07-01-2008 [place] (CURRENT) [facility] USE OF HOSPITAL OTHER MEDICATIONS 4660 [...] Procedure DOS Code Location Performer Comment RADEX 98771 [facility] HUGO GAY SPINE 6 [facility] CERVICAL INC INC 2 OR 3 VIEWS RADEX 34469 [facility] MARYAN ABDOMEN 6 MEDICAL GERHARD COMPL IMAGING W/DCBTS&/ [place] [address] MAINE MARYAN ABDOMEN & 6 MEDICAL GERHARD PELVIS IMAGING W/CONTRAS ASS T MATERIAL IM ADM 36238 VICTOR [facility] GAY PRQ ID 6 [facility] SUBQ/IM INC INC NJXS 1 VACCINE RADIOLOGI 06837 VICTOR HUGO GAY C EXAM 5 [facility] H[facility] CHEST 2 INC INC VIEWS FRONTAL&L ATERAL NONEMERG A0120 FEDERATED FEDERATED TRNSPRT: 5 [facility] TRANSPORT TRANSPORT MTN [facility] AREA/OTH SYS NONEMERG A0120 FEDERATED FEDERATED TRNSPRT: 4 TRANS [facility] TRANSPORT [facility] AREA/OTH SYS RADIOLOGI 28955 MAINE MARYAN C EXAM 4 MEDICAL GERHARD CHEST [...] TRANS MINI-BUS TRANSPORT SERVBLUEG MTN [facility] SER KIET AREA/OTH SYS RADEX 15840 MAINE MARYAN FOOT 4 MEDICAL GERHARD COMPLETE IMAGING MINIMUM 3 ASS VIEWS RADEX 25138 [facility] [place] [facility] MAT SPINE 4 RADIOLOGY THORACOLM BR STANDING SCOLIOSIS RADIOLOGI 02743 MAINE MARYAN C EXAM 4 MEDICAL GERHARD CHEST 2 IMAGING VIEWS ASS FRONTAL&L ATERAL NONEMERG A0120 BLUE BLUE TRNSPRT: 3 [facility] MINI-BUS [facility] MTN ACTION ACTION AREA/OTH SYS NONEMERG A0120 BLUE BLUE TRNSPRT: 3 [facility] MTN ACTION ACTION AREA/OTH SYS NONEMERG A0120 BLUE BLUE TRNSPRT: 3 [facility] MTN ACTION ACTION AREA/OTH SYS RADEX 03418 [facility] [place] RICHARD WRIST 3 RADIOLOGY III ZBIGNIEW COMPLETE MINIMUM 3 VIEWS NONEMERG A0120 BLUE BLUE TRNSPRT: 3 [facility] MTN ACTION ACTION AREA/OTH SYS NONEMERG A0120 LKLP LKLP TRNSPRT: 3 [facility] MINI-BUS ACTION ACTION MTN AREA/OTH SYS WRIST L3908 [facility] HAND 3 ORTHOSIS EXT CONTROL COCK-UP PREFAB NONEMERG A0120 LKLP LKLP TRNSPRT: 3 [facility] MINI-BUS ACTION ACTION MTN AREA/OTH SYS NONEMERG A0120 LKLP LKLP TRNSPRT: 3 [facility]-BUS ACTION ACTION MTN AREA/OTH SYS NONEMERG [...] SYS NONEMERG A0120 LK LKLP TRNSPRT: 2 [facility] MIN[facility]-BUS ACTION ACTION MTN AREA/OTH SYS NONEMERG A0120 LK LK TRNSPRT: 2 [facility]-BUS ACTION ACTION MTN AREA/OTH SYS NONEMERG A0120 LK LK TRNSPRT: 2 [facility] MINI-BUS ACTION ACTION MTN AREA/OTH SYS NONEMERG A0120 LK LK TRNSPRT: 2 [facility] MIN[facility]-BUS ACTION ACTION MTN AREA/OTH SYS MRI 70953 [facility] [place] SPINAL 2 [place] MAN[place] CANAL ORTHOPAED LUMBAR ICS PLC W/O CONTRAST MATERIAL NRV CNDJ 81801 [facility] TRA AMPLT&LAT 2 [place] ENCY EA ORTHOPAED NRV MOTOR ICS PLC W/F-WAVE STD NRV CNDJ 31342 [facility] AMPLITUDE 2 [place] & ORTHOPAED LATENCY ICS PLC EACH NERVE SENSORY H-REFLEX 14000 [facility] [place] AMPLT&LAT 2 [place] ENCY ORTHOPAED GASTRCN/S ICS PLC OLEUS MUSC NEEDLE 60070 [facility] [place] EMG EA 2 [place] EXTREMTY ORTHOPAED W/PARASPI ICS PLC NL AREA COMPLETE RADEX 70255 [facility] [place] SPINE 2 [place] MAN[place] LUMBOSACR ORTHOPAED AL 2/3 ICS PLC VIEWS NONEMERG A0120 LK LK TRNSPRT: 2 [facility] MINI-BUS ACTION ACTION MTN AREA/OTH SYS NONEMERG A0120 LK LK TRNSPRT: 2 [facility]-BUS ACTION ACTION MTN AREA/OTH SYS NONEMERG A0120 LK LK TRNSPRT: 2 [facility] ACTION ACTION MTN AREA/OTH SYS NONEMERG A0120 LK LK TRNSPRT: 2 [facility] ACTION ACTION MTN AREA/OTH SYS NONEMERG A0120 LK LK TRNSPRT: 2 [facility] ACTION ACTION MTN AREA/OTH SYS NONEMERG A0120 LK LK TRNSPRT: 2 [facility] ACTION ACTION MTN AREA/OTH SYS NONEMERG A0120 LK LKLP TRNSPRT: 2 [facility] ACTION ACTION MTN AREA/OTH SYS NONEMERG A0120 LKLP LKLP TRNSPRT: 2 [facility] ACTION ACTION MTN AREA/OTH SYS NONEMERG A0120 LK LKLP TRNSPRT: 2 [facility] ACTION ACTION MTN AREA/OTH SYS NONEMERG A0120 LK LKLP TRNSPRT: 2 [facility] ACTION ACTION MTN AREA/OTH SYS NONEMERG A0120 LK LKLP TRNSPRT: 2 [facility] ACTION ACTION MTN AREA/OTH SYS NONEMERG A0120 LK LKLP TRNSPRT: 2 [facility] ACTION ACTION MTN AREA/OTH SYS NONEMERG A0120 LK LKLP TRNSPRT: 2 [facility] ACTION ACTION MTN AREA/OTH SYS WRIST L3908 LINETTE LINETTE HAND 2 HOME HOME ORTHOSIS MEDICAL MEDICAL EXT EQUIPME EQUIPME CONTROL COCK-UP PREFAB NONEMERG A0120 LKLP LKLP TRNSPRT: 2 [facility] MINI-BUS ACTION ACTION MTN AREA/OTH SYS NONEMERG A0120 LK LK TRNSPRT: 1 [facility] ACTION N MTN AREA/OTH SYS RADEX 08581 [facility] SPINE 1 MEDICAL MEDICAL CERVICAL IMAGING IMAGING [address] [place] [address] [facility] MAXILLOFA 1 MEDICAL MEDICAL CIAL W/O IMAG[place] IM[place] [address] [facility] HEAD/BRAI 1 MEDICAL MEDICAL N W/O IMAGING IMAGING CONTRAST ASS ASS MATERIAL NONEMERG A0120 LKLP LKLP TRNSPRT: 1 [facility] MINI-BUS ACTION N MTN AREA/OTH SYS LIPID 63808 [facility] GAY PANEL 1 [facility] INC INC COMPREHEN 11972 [facility] G[facility] SIVE 1 [facility] METABOLIC INC INC PANEL COLLECTIO 54530 VICTOR HUGO GAY N VENOUS 1 [facility] BLOOD INC INC VENIPUNCT URE COLLECTIO 60105 [facility] LYNCH PAD N VENOUS 1 BLOOD VENIPUNCT URE COMPREHEN 80042 [facility] SIVE 1 [facility] [place] [address] [facility] THYROID 1 [facility] STIMULATI NG HORMONE TSH LIPID 52667 [facility] PANEL 1 [facility] IMMUNOASS 47452 [facility] AY 1 N N ANALYTE [facility] QUAL/SEMI HOSPITA HOSPITA QUAL MULTIPLE STEP HEPATITIS 97617 [facility] CORE 1 N N ANTIBODY [facility] HBCAB HOSPITA HOSPITA TOTAL HEPATITIS 78127 [facility] SURF 1 N N ANTIBODY [facility] [place] [address] [facility] [place] [facility] MAT ABDOMINAL 1 RADIOLOGY REAL [place] W/[place] [address] [facility] GAMMAGLOB 1 N N ULIN IGA [facility] IGD IGG HOSPITA HOSPITA IGM EACH HEPATITIS 17391 [facility] A 1 N N ANTIBODY [facility] HAAB HOSPITA HOSPITA COMPREHEN 50121 [facility] SIVE 1 N N METABOLIC [facility] PANEL HOSPITA HOSPITA ACUTE 55006 [facility] HEPATITIS 1 N N PANEL [facility] COMMUNITY HOSPITA HOSPITA COLLECTIO 26622 [facility] N VENOUS 1 N N BLOOD [facility] VENIPUNCT HOSPITA HOSPITA URE ANTINUCLE 77529 [facility] AR 1 N N ANTIBODIE [facility] S BAUTISTA HOSPITA HOSPITA FLUORESCE 95771 [facility] NT 1 N N NONNFCT [facility] AGT ANTB HOSPITA HOSPITA SCREEN EA ANTIBODY COLLECTIO 97086 [facility] N VENOUS 1 N N BLOOD [facility] [place]ENIPUN[place] [address] [facility] THYROID 1 N N STIMULATI [facility] NG HOSPITA HOSPITA HORMONE TSH COMPREHEN 61834 [facility] SIVE 1 N N METABOLIC [facility] PANEL HOSPITA HOSPITA LIPID 79444 [facility] PANEL 1 N N [facility] HOSPITA HOSPITA RADIOLOGI 08233 [facility] GRAMAJOMARYAN C 0 MEDICAL GERHARD EXAMINATI IMAGING ON KNEE 3 ASS VIEWS COLLECTIO 34532 [facility] N VENOUS 0 N N BLOOD [facility] VENIPUNCT HOSPITA HOSPITA URE HEPATIC 91458 [facility] FUNCTION 0 N N PANEL [facility] [place] [address] [facility] INSULIN 0 N N TOTAL [facility] HOSPITA HOSPITA COMPREHEN 04181 [facility] SIVE 0 [facility] [employer] [facility] METABOLIC PANEL LIPID 14211 [facility] PANEL 0 [email or web address] INC COLLECTIO 97640 LYNCH PAD LYNCH PAD N VENOUS 0 BLOOD VENIPUNCT URE CUL BACT 63300 [facility] XCPT 0 N N URINE [facility] OL AEROBIC ISOL CUL BACT 16811 [facility] AEROBIC 0 N N [facility] DEFINITIV E EA ISOL SUSCEPTIB 17157 [facility] LTY STDY 0 N N ANTIMICRB [facility] MICRO/[place] [address] [facility] STREPTOCO 9 N N [facility] CUL BACT 63815 [facility] XCPT 9 N N URINE [facility] OL AEROBIC ISOL OPHTH 08119 [facility], MEDICAL 9 [facility] CARE [facility] COMPRE NEW PT 1/> VST DETERMINA 59542 [facility] HABASH, TION 9 [facility] E STATE RADEX 60335 [facility] MINORN, SHOULDER 9 EMERGENCY KENDY 1 VIEW SERVICES ASSOCIATE S RADEX 41146 [facility] SHOULDER 9 N N COMPLETE [address] HOSPITAL VIEWS COLLECTIO 23102 [facility] N VENOUS 9 N N BLOOD [facility] URE BASIC 08557 [facility] METABOLIC 9 N N [facility] [place] [address] [facility] LACTATE 9 N N [facility] [place] [address] [facility] THYROID 9 N N STIMULATI [facility] HORMONE TSH LIPID 29062 [facility] PANEL 9 N N [facility] HEPATIC 52340 [facility] FUNCTION 9 N N PANEL [facility] BLOOD 74855 [facility] COUNT 9 N N [facility] DIFRNTL WBC HEMOGLOBI 48297 [facility] N 8 N N [address] HEPATIC [address] [facility] FUNCTION 8 N N PANEL [facility] LIPID 57970 [facility] PANEL 8 N N [facility] BLOOD 47542 [facility] COUNT 8 N N COMPLETE [facility] [place] [address] [facility] THYROID 8 N N STIMULATI [facility] HORMONE TSH BASIC 77606 [facility] METABOLIC 8 N N PANEL [facility] TOTAL COLLECTIO 30124 [facility] N VENOUS 8 N N [place] [facility] [place] [place] [address] [facility] HU[facility] GAY THER 8 [facility] PROPH/DX INC INC 1ST >1 HR THER 30959 [facility] GAY PROPH/DX 8 [facility] NJX EA INC INC SEQL IV PUSH SBST/DRUG IV NFUS 65599 [facility] GAY THER 8 [facility] PROPH/DX INC INC EA HR THER 00236 [facility] GAY PROPH/DX 8 [facility] H[facility]P NJX IV INC INC PUSH 1ST SBST/DRUG BASIC 68322 [facility] HUGO GAY METABOLIC 8 [facility] PANEL INC INC CALCIUM TOTAL RADIOLOGI 51476 ALBERTO Juan PERALES EXAM 8 MEDICAL ALEX P CHEST 2 IMAGING VIEWS ASSOCIATE FRONTAL&L S ATERAL BLOOD 27350 [facility] GAY COUNT 8 [facility] COMPLETE INC INC AUTO&AUTO DIFRNTL WBC Encounters Encounter Start End Date Code Location Performer Type Date HOSPITAL [facility] - 6 6 [facility] - 6 6 [facility] - 6 6 [facility] - 5 5 [facility] EMERGENCY 46903 NILA DOTSON 4 4 [facility] DEPARTMEN T VISIT MODERATE SEVERITY EMERGENCY 84303 ERASMO ALONSO ERASMO ALONSO 4 4 DEPARTMEN T VISIT MODERATE SEVERITY HOSPITAL [facility] - 4 4 [facility] EMERGENCY 95739 VICTOR HUGO [address] [facility] T VISIT LOW/MODER SEVERITY EMERGENCY 29003 [facility] 4 4 EMERGENCY III [facility] T VISIT MODERATE SEVERITY EMERGENCY 57264 [facility] 3 3 [facility]ISIT HIGH/URGE NT SEVERITY OFFICE 80578 [facility] OUTPATIEN 2 2 [place] T VISIT ORTHOPAED 10 [facility] MINUTES OFFICE 36723 [facility] [place] OUTPATIEN 2 2 [place] MAN[place] T NEW 30 ORTHOPAED MINUTES ICS PLC EMERGENCY 21425 [facility] TORO DEPT 1 1 EMERGENCY EMERGENCY VISIT SERVICES SERVICES HIGH SEVERITY& THREAT FUNCJ OFFICE 12031 MILLY ATKINS OUTPATIEN 1 1 KRISTY KRISTY T VISIT 15 MINUTES HOSPITAL VI[facility] - 1 1 [facility] 00423 [facility]YN[facility] PAD LYNCH PAD OUTPATIEN 1 1 T VISIT 25 MINUTES OFFICE 62306 LYNCH PAD LYNCH PAD OUTPATIEN 1 1 T VISIT 15 MINUTES [facility]OSPITAL [facility] - 1 1 N OUTPATIEN [facility] T HOSPITA OFFICE 36624 MURIEL- MURIEL- OUTPATIEN 1 1 VINCE VINCE T NEW 45 [facility] MINUTES HOSPITAL VI[facility] HUGO - 1 1 [facility] EMERGENC[facility] 09077 VICTOR HUGO [address] [facility] T VISIT LIMITED/M INOR PROB EMERGENCY 26217 [facility] LOPEZ 1 1 EMERGENCY DEPARTMEN SERVICES T VISIT MODERATE SEVERITY OFFICE 39181 LYNCH PAD LYNCH PAD OUTPATIEN 1 1 T VISIT 15 MINUTES [facility] 40255 VICTOR HUGO [address] [facility] T VISIT LOW/MODER SEVERITY EMERGENCY 65333 CORTEZ CHI 0 0 [facility] III [facility]IGH/URGE NT SEVERITY HOSPITAL VICTOR HUGO - 0 0 [facility] OFF[facility] 78219 LYNCH PAD LYNCH PAD OUTPATIEN 0 0 T VISIT 15 MINUTES OFFICE [id number] LYN[facility] PAD LYNCH PAD OUTPATIEN 0 0 T NEW 30 MINUTES [facility] 55614 [facility] 0 0 N [facility] T VISIT HOSPITAL MODERATE SEVERITY EMERGENCY 85022 CORTEZ SVETLANA, 9 9 EMERGENCY [facility] SERVICES T VISIT MODERATE ASSOCIATE SEVERITY S HOSPITAL [facility] 97659 [facility] 9 9 N [facility] T VISIT HOSPITAL LOW/MODER SEVERITY [facility]ITAL [facility] 43141 CORTEZ AMBER, 9 9 EMERGENCY [facility] SERVICES T VISIT MODERATE ASSOCIATE SEVERITY S OFFICE 33784 HORIZON JAYDA, OUTPATIEN 9 9 [facility] 15 MINUTES OFFICE [id number] H[facility]IZON JAYDA, OUTPATIEN 9 9 [facility] 15 MINUTES [facility]PITAL [facility] 65524 HORIZON JAYDA[facility] OUTPATIEN 9 9 [facility] 15 MINUTES OFFICE 71369 HORIZON JAYDA, OUTPATIEN 8 8 [facility] 15 MINUTES [facility]OSPITAL [facility] 61188 VICTOR HUGO 8 8 [facility] T VISIT MODERATE SEVERITY HOSPITAL [facility] HU[facility] - 8 8 [facility]
--- OUTSIDE RECORDS SUMMARY | 2017-02-24 22:42 | External Medical Summary Rpt ---
Author Author , Organization [employer] Address Unknown Phone Unavailable Purpose Continuity of Care Document - 05-06-1998 through 2016 Immunization Name Date Route CVX Reacti Commen Provid Is Given on t er Refuse d Hep B, Histor H198A No adol 1997 ical High Inform Ris ation - Source Unspec ified
--- OUTSIDE RECORDS SUMMARY | 2017-02-24 22:42 | External Medical Summary Rpt ---
Author Author COBY Patel, COBY Patel Organization [employer] Address Unknown Phone Unavailable
[2017-02-24] MEDS ORDERED: TRAZADONE HYDR100 MG PO (22:47)
--- NOTE | 2017-02-24 23:43 | Emergency Room Report ---
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 N Clinical Suspician of Infection? N Mental Status: 1 - Regular (Normal Baseline) Sepsis Risk:Low Sepsis Risk Have you (or family members/close friends) recently traveled outside the [place]? N If Yes, where/when: Have you had exposure to infectious disease within the past month? TB? Other? Specify: Source patient, RN notes reviewed, family, RN/MD Exam Limitations no limitations Comment This is a 31-year-old gentleman presenting the emergency room with a RIGHT index ingrown nail, as a result of a childhood injury. Nail has been causing him occasional discomfort, occasional bleeding. ALLERGIES Coded Allergies: acetaminophen (From TYLENOL) (Mild, 04/07/16) Home Medications Reported Medications Quetiapine Fumarate (Seroquel Xr) 600 MG PO BEDTIME Quetiapine Fumarate (Seroquel 50MG) 50 MG PO BID Buspirone Hcl (Buspirone HCl) 5 MG PO TID PRN . #90 TAB Trazodone Hcl (Trazodone HCl) 100 MG PO QHSP PRN SLEEP #30 History Medical History General CAD? No Angina: No [place]: No Hypertension? Yes Hyperlipidemia? Yes CHF? No DVT? No PE? No COPD? No Asthma? No Anemia? No GERD? Yes Gastric ulcers? No GI Bleed? No Hernia? No Thyroid Problems? Yes Hypothyroidism? Yes CVA? No Seizures? No Diabetes? No Insulin Dependent: No Insulin Pump: No Home FSBS? No Renal Insuffiency? No End Stage Renal Disease? No UTI? No Stones? No BPH? No GB Disease: No Nephritic Syndrome? No Asplenia? No Hepatitis? No Sickle Cell Disease? No Arthritis? No Migraines? Yes Cataracts? No Glaucoma? No MRSA? No HIV? No TB? No Anxiety? No Depression? No Cancer? No Immunization Hx DT/Tetanus 1-4 Years Ago Surgical Hx Previous Surgery?N Social History Smoking Hx Smoker: Never Smoker Tobacco: No Alcohol Alcohol: No Review of Systems All Other Systems Reviewed and Negative Musculoskeletal joint pain (RIGHT index pain) Physical Exam Vital Signs Vital Signs Date Time Temp Pulse Resp B/P Pulse O2 O2 Flow FiO2 Ox Delivery Rate 02/24 2358 99.3 74 16 137/87 100 02/24 2233 99.3 74 16 137/87 100 General Appearance normal appearance, WD/WN, no apparent distress Respiratory Status Yes: trachea midline, chest symmetrical, non tender chest. No: respiratory distress. Lung Sounds bilateral: normal breath sounds, lungs clear. Cardiovascular normal exam, regular rate/rhythm, no peripheral edema, no gallop, no JVD, no murmur, no rub, normal peripheral pulses Gastrointestinal normal bowel sounds, normal exam, non tender, soft, no organomegaly Extremities RIGHT index with laterally ingrown nail, with lateral part of the index male obscured/covered by skin (cuticle). Neurologic alert, legal department manager II-XII nml as tested, normal exam, oriented x 3 Skin intact, normal color, warm/dry Medical Decision Making LABS/Meds/Orders Pt receiving controlled substance in ED? No Comment Patient tolerated procedure well, no immediate medications. Advised patient to keep wound clean and dry, watch for signs of possible local infection, change dressing daily. Instructed patient that his nail will gradually go back in place. I've explained to the patient that there is a high probability that his nail may return (grow back) just the same way it was prior to the nail excision today. Results/Orders Current Medication Orders Sig/Ranjit Start time Last Medication Dose Route Stop Time Status Admin Lidocaine HCl 20 ML ONCE ONE 02/24 2300 DC 02/24 SC 02/24 230 2304 Lidocaine HCl 0 .STK-MED ONE 02/24 2237 DC .ROUTE Procedures Nail Proc/Finger Tip Repair Nail Proc/Finger Tip Repair Risks/benefits discussed with pt/guardian? Yes Nail Procedure/Finger Tip Repair complete excision of RIGHT index nail Anesthesia Digital block, Lidocaine 1% Complete nail removal Yes Excision of nail & nailbed Yes Irrigation ml- Yes (20 mL saline) Departure Departure Time of Disposition 2341 Disposition DC Home or Self Care(routine) Clinical Impression Primary Impression: Ingrown fingernail Condition STABLE Patient Instructions DI for Nail Bed Injury Additional Instructions Please change dressing daily, watch for signs of possible local infection, keep wound clean and dry. Follow-up with your family physician if any further problems related to your LEFT index nail. Discharge Counseling Counseled pt/family regarding diagnosis, medications/RX, home care, follow up needs Comment Please change dressing daily, watch for signs of possible local infection, keep wound clean and dry. Follow-up with your family physician if any further problems related to your LEFT index nail. Prescriptions Current Visit Scripts Amoxicillin/Potassium Clav (Augmentin 875-125 Tablet) 1 EACH PO BID #20 TAB ED Critical Care Critical Care No at [id number]
--- NOTE | 2017-02-24 23:43 | Emergency Room Report ---
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 N Clinical Suspician of Infection? N Mental Status: 1 - Regular (Normal Baseline) Sepsis Risk:Low Sepsis Risk Have you (or family members/close friends) recently traveled outside the [place]? N If Yes, where/when: Have you had exposure to infectious disease within the past month? TB? Other? Specify: Source patient, RN notes reviewed, family, RN/MD Exam Limitations no limitations Comment This is a 31-year-old gentleman presenting the emergency room with a RIGHT index ingrown nail, as a result of a childhood injury. Nail has been causing him occasional discomfort, occasional bleeding. ALLERGIES Coded Allergies: acetaminophen (From TYLENOL) (Mild, 04/07/16) Home Medications Reported Medications Quetiapine Fumarate (Seroquel Xr) 600 MG PO BEDTIME Quetiapine Fumarate (Seroquel 50MG) 50 MG PO BID Buspirone Hcl (Buspirone HCl) 5 MG PO TID PRN . #90 TAB Trazodone Hcl (Trazodone HCl) 100 MG PO QHSP PRN SLEEP #30 History Medical History General CAD? No Angina: No [place]: No Hypertension? Yes Hyperlipidemia? Yes CHF? No DVT? No PE? No COPD? No Asthma? No Anemia? No GERD? Yes Gastric ulcers? No GI Bleed? No Hernia? No Thyroid Problems? Yes Hypothyroidism? Yes CVA? No Seizures? No Diabetes? No Insulin Dependent: No Insulin Pump: No Home FSBS? No Renal Insuffiency? No End Stage Renal Disease? No UTI? No Stones? No BPH? No GB Disease: No Nephritic Syndrome? No Asplenia? No Hepatitis? No Sickle Cell Disease? No Arthritis? No Migraines? Yes Cataracts? No Glaucoma? No MRSA? No HIV? No TB? No Anxiety? No Depression? No Cancer? No Immunization Hx DT/Tetanus 1-4 Years Ago Surgical Hx Previous Surgery?N Social History Smoking Hx Smoker: Never Smoker Tobacco: No Alcohol Alcohol: No Review of Systems All Other Systems Reviewed and Negative Musculoskeletal joint pain (RIGHT index pain) Physical Exam Vital Signs Vital Signs Date Time Temp Pulse Resp B/P Pulse O2 O2 Flow FiO2 Ox Delivery Rate 02/24 2358 99.3 74 16 137/87 100 02/24 2233 99.3 74 16 137/87 100 General Appearance normal appearance, WD/WN, no apparent distress Respiratory Status Yes: trachea midline, chest symmetrical, non tender chest. No: respiratory distress. Lung Sounds bilateral: normal breath sounds, lungs clear. Cardiovascular normal exam, regular rate/rhythm, no peripheral edema, no gallop, no JVD, no murmur, no rub, normal peripheral pulses Gastrointestinal normal bowel sounds, normal exam, non tender, soft, no organomegaly Extremities RIGHT index with laterally ingrown nail, with lateral part of the index male obscured/covered by skin (cuticle). Neurologic alert, prosthodontist II-XII nml as tested, normal exam, oriented x 3 Skin intact, normal color, warm/dry Medical Decision Making LABS/Meds/Orders Pt receiving controlled substance in ED? No Comment Patient tolerated procedure well, no immediate medications. Advised patient to keep wound clean and dry, watch for signs of possible local infection, change dressing daily. Instructed patient that his nail will gradually go back in place. I've explained to the patient that there is a high probability that his nail may return (grow back) just the same way it was prior to the nail excision today. Results/Orders Current Medication Orders Sig/Ranjit Start time Last Medication Dose Route Stop Time Status Admin Lidocaine HCl 20 ML ONCE ONE 02/24 2300 DC 02/24 SC 02/24 230 2304 Lidocaine HCl 0 .STK-MED ONE 02/24 2237 DC .ROUTE Procedures Nail Proc/Finger Tip Repair Nail Proc/Finger Tip Repair Risks/benefits discussed with pt/guardian? Yes Nail Procedure/Finger Tip Repair complete excision of RIGHT index nail Anesthesia Digital block, Lidocaine 1% Complete nail removal Yes Excision of nail & nailbed Yes Irrigation ml- Yes (20 mL saline) Departure Departure Time of Disposition 2341 Disposition DC Home or Self Care(routine) Clinical Impression Primary Impression: Ingrown fingernail Condition STABLE Patient Instructions DI for Nail Bed Injury Additional Instructions Please change dressing daily, watch for signs of possible local infection, keep wound clean and dry. Follow-up with your family physician if any further problems related to your LEFT index nail. Discharge Counseling Counseled pt/family regarding diagnosis, medications/RX, home care, follow up needs Comment Please change dressing daily, watch for signs of possible local infection, keep wound clean and dry. Follow-up with your family physician if any further problems related to your LEFT index nail. Prescriptions Current Visit Scripts Amoxicillin/Potassium Clav (Augmentin 875-125 Tablet) 1 EACH PO BID #20 TAB ED Critical Care Critical Care No at [id number]
[2017-02-24] MEDS ORDERED: AUGMENTIN 875-1 EACH PO (23:57)
[2017-02-24 23:58] VITALS: BP 137/87
== END 2017-02-25 | disposition home or self-care (01) ==
LOC: ER 22:28
PROC: 0HDQXZZ Extraction of Finger Nail, External Approach (ICD-10-PCS; principal; 2017-02-24)
DX: L60.0 Ingrowing nail (principal)